=== PATIENT | female | born 1980 | race Caucasian/White ===

== ENCOUNTER 2020-08-12 13:52 | Outpatient (REF) | payer OTHER, SELFPAY ==
--- NOTE | ~2020-08-12 | US_ITS ---
EXAMINATION: US RETROPERITONEAL LIMITED (RENAL ONLY) CLINICAL INFORMATION: Nephrolithiasis. COMPARISON: Renal ultrasound dated 10/04/2019. CT abdomen and pelvis without contrast dated 08/16/2019. TECHNIQUE: Real-time imaging of the kidneys. FINDINGS: RIGHT KIDNEY: 9.7 x 4.0 x 4.6 cm (SAG x AP x TRV). The kidney is normal in size, contour, and echogenicity. Renal cortical thickness is normal. No calculi or focal parenchymal lesions. No hydronephrosis. LEFT KIDNEY: 10.7 x 4.9 x 4.9 cm (SAG x AP x TRV). The kidney is normal in size, contour, and echogenicity. Renal cortical thickness is normal. There are 3 echogenic foci in the mid and lower pole measuring 2 to 3 mm suggestive of small stones. No focal parenchymal lesions or hydronephrosis. US/US renal BI IMPRESSION: Small left renal stones.
== END 2020-08-12 13:53 | disposition home or self-care (01) ==
LOC: HO.HMGCX 13:52
PROVIDERS: Visit Provider Urology
DX: N20.0 Calculus of kidney (principal)
CPT/HCPCS: 76775

== ENCOUNTER 2022-03-03 07:27 | Outpatient (REF) | payer OTHER, SELFPAY ==
[2022-03-03 07:33] LABS: MANUAL DIFF FLAG NO
[2022-03-03 07:54] LABS: Basophils Percent Auto 0.5 % (0-2); Eosinophils Absolute Auto 0.1 X10*3/uL (0.0-0.4); Eosinophils Percent Auto 1.9 % (0-4); Hematocrit 42.8 % (37.0-47.0); Hemoglobin 13.9 g/dl (12.0-16.0); Imm Gran Abs Auto 0.02 X10*3/uL (0.00-0.03); Imm Gran Pct Auto 0.3 % (0.0-0.4); Lymphocytes Absolute Auto 1.7 X10*3/uL (1.2-4.9); Lymphocytes Percent Auto 26.8 % (20-40); Mean Corpuscular HGB Conc 32.5 g/dl (31.0-35.0); Mean Corpuscular Hemoglobin 29.5 pg (27.0-33.0); Mean Corpuscular Volume 90.9 fL (80.0-98.0); Mean Platelet Volume 10.3 fL (9.4-12.3); Monocytes Absolute Auto 0.4 X10*3/uL (0.1-1.2); Monocytes Percent Auto 6.9 % (2-11); Neutrophils Percent Auto 63.6 % (45-73); Platelet Count 305 X10*3/uL (160-400); Red Blood Count 4.71 X10*6/uL (4.20-5.50); Red Cell Distribution Width 11.9 % (11.0-16.0); White Blood Count 6.3 X10*3/uL (4.8-10.8)
[2022-03-03 09:01] LABS: Alanine Aminotransferase 23 U/L (0-31); Albumin Level 3.9 g/dL (3.5-5.0); Alkaline Phosphatase 66 U/L (39-117); Anion Gap 14 (12-20); Aspartate Amino Transferase 19 U/L (5-31); Bilirubin Total 1.1 mg/dL (0.0-1.0); Blood Urea Nitrogen 15 mg/dL (9-16); Calcium 9.2 mg/dL (8.4-10.2); Carbon Dioxide 26 mmol/L (22-29); Chloride 106 mmol/L (96-108); Cholesterol 204 mg/dL; Estimated Glomerular Filt Rate > 60; Free T4 (Free Thyroxine) 0.88 ng/dL (0.71-1.85); Glucose Fasting 108 mg/dL (60-99); HDL Cholesterol 47 mg/dL; LDL Cholesterol Calculated 132 mg/dl; Potassium 4.9 mmol/L (3.3-5.1); Sodium 141 mmol/L (135-145); Thyroid Stimulating Hormone 1.72 uIU/mL (0.32-4.0); Total Protein 6.3 g/dL (6.5-8.0); Triglycerides 127 mg/dL; Vitamin D 25-OH Total 31.3 ng/mL (>30)
== END 2022-03-03 07:28 | disposition home or self-care (01) ==
LOC: HO.LAB 07:27
PROVIDERS: PCP Internal Medicine Medical Oncology; Visit Provider Internal Medicine Medical Oncology
DX: I10 Essential (primary) hypertension (principal); E66.9 Obesity, unspecified
CPT/HCPCS: 36415; 80053; 80061; 82306; 83735; 84439; 84443; 85025

== ENCOUNTER → 2022-11-18 12:55 | Outpatient (REF) | payer OTHER, SELFPAY | LOC: HO.SL 12:55 | PROVIDERS: PCP Internal Medicine Medical Oncology; Visit Provider Psychiatry & Neurology Neurology | DX: G47.33 Obstructive sleep apnea (adult) (pediatric) (principal) | CPT/HCPCS: 95806 ==

== ENCOUNTER → 2022-11-18 19:00 | Outpatient (BNV) | payer OTHER, SELFPAY | PROVIDERS: PCP Internal Medicine Medical Oncology; Visit Provider Internal Medicine | DX: R06.83 Snoring (principal) | CPT/HCPCS: 95806 ==

== ENCOUNTER 2023-01-17 09:12 | Outpatient (REF) | payer OTHER, SELFPAY | END 2023-01-17 09:13 | disposition home or self-care (01) | LOC: HO.XRAY 09:12 | PROVIDERS: PCP Internal Medicine Medical Oncology; Visit Provider Internal Medicine Medical Oncology | DX: R05.9 Cough, unspecified (principal); J18.9 Pneumonia, unspecified organism | CPT/HCPCS: 71046 ==

== ENCOUNTER 2023-02-02 05:29 | Emergency (ER) | payer OTHER, SELFPAY ==
--- NOTE | 2023-02-02 | ECG_ITS ---
Test Reason : CHEST PAIN Blood Pressure : / mmHG Vent. Rate : 079 BPM Atrial Rate : 079 BPM P-R Int : 152 ms QRS Dur : 080 ms QT Int : 388 ms P-R-T Axes : 047 035 019 degrees QTc Int : 444 ms Normal sinus rhythm Normal ECG No previous ECGs available Referred By: Generic ED Physician Electronically Signed By:ASHOK MARTINEZ MD
[2023-02-02 05:41] VITALS: BP 155/104; PULSE 96; RESP 17; TEMP 36.7; O2SAT 96; BMI 39.2
[2023-02-02 05:45] LABS: Hematocrit 41.8 % (37.0-47.0); Hemoglobin 13.9 g/dl (12.0-16.0); Mean Corpuscular HGB Conc 33.3 g/dl (31.0-35.0); Mean Corpuscular Hemoglobin 29.5 pg (27.0-33.0); Mean Corpuscular Volume 88.7 fL (80.0-98.0); Mean Platelet Volume 9.9 fL (9.4-12.3); Platelet Count 310 X10*3/uL (160-400); Red Blood Count 4.71 X10*6/uL (4.20-5.50); Red Cell Distribution Width 12.2 % (11.0-16.0); White Blood Count 6.1 X10*3/uL (4.8-10.8)
[2023-02-02 06:04] LABS: Alanine Aminotransferase 23 U/L (0-31); Alkaline Phosphatase 66 U/L (39-117); Anion Gap 13 (12-20); Aspartate Amino Transferase 19 U/L (5-31); Bilirubin Total 0.9 mg/dL (0.0-1.0); Blood Urea Nitrogen 21 mg/dL (9-16); Calcium 9.6 mg/dL (8.4-10.2); Carbon Dioxide 25 mmol/L (22-29); Chloride 106 mmol/L (96-108); Creatinine Clr Calc Pharmacy 113.1; Estimated Glomerular Filt Rate > 60; Glucose Random 111 mg/dL (60-115); Sodium 140 mmol/L (135-145); Total Protein 7.1 g/dL (6.5-8.0)
[2023-02-02 06:22] LABS: Troponin-I High Sensitivity < 2.7 ng/L (<3.5-17.0)
--- OUTSIDE RECORDS SUMMARY | 2023-02-02 07:00 | XMS_ITS | Continuity of Care Document ---
Author Name Unknown Organization [facility] Address [address] [place] [address], [address] [place] [address]- Care Team Providers Care Auto Refinisher Name Role Phone Javy Hall MD Primary Care Physician Encounter [facility] [place] Date(s): 06/02/22 - 07/31/22 [facility] [address] [place] [address], [address] [place] [address]- Attending Physician: Gladys Almanza MD Allergies, Adverse Reactions, Alerts No Known Medication Allergies Problem List Condition Confirmation Course Effective Dates Status H ealth Status Informant Nerve compression Confirmed Active 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
--- OUTSIDE RECORDS SUMMARY | 2023-02-02 07:00 | XMS_ITS | Continuity of Care Document ---
Author Name Unknown Organization [facility] Address [address] [place] [address] ser[address], [address] [place] [address]- Care Team Providers Care Assembly Department Supervisor Name Role Phone Javy Hall MD Primary Care Physician Encounter [facility] Date(s): 12/03/21 - 12/10/21 [facility] [address] [place] [address] Drive, [address] [place], [place] [address] Attending Physician: Gladys Almanza MD Allergies, Adverse Reactions, Alerts No Known Medication Allergies Medications No Known Medications Problem List Condition Effective Dates Status Health Status Inform ant Nerve compression(Confirmed) Active Herniation of intervertebral disc without myelopathy(Confirmed) Active Severe obesity(Confirmed) Active Spinal stenosis(Confirmed) Active Vital Signs Most recent to oldest [Reference Range]: 1 Height 170.18 cm (12/03/21 11:47 AM) Weight 124 kg (12/03/21 11:47 AM) Body Mass Index [18.5-24.99] 42.82 *>HHI* (12/03/21 11:47 AM) Social History Social History Type Response Smoking Status Never smoker entered on: 05/23/17 Sex Care Team Personnel Name: Javy Hall MD Address: [address] [place] [address] [address] Javy Hall III, [place], [place] [address]
--- OUTSIDE RECORDS SUMMARY | 2023-02-02 07:00 | XMS_ITS | Continuity of Care Document ---
Author Name Unknown Organization [facility] Address [address] [place] [address]- Care Team Providers Care Computer Tester Name Role Phone Calli OSORIO, Alicia Jackman Primary Care Physician Encounter 11/20/21 - 11/30/21 [facility] [address] [place] [address]- Discharge Disposition: GOALS MET Allergies, Adverse Reactions, Alerts No Known Medication Allergies Problem List Condition Effective Dates Status Health Status Inform ant Nerve compression(Confirmed) Active Herniation of intervertebral disc without myelopathy(Confirmed) Active Severe obesity(Confirmed) Active Spinal stenosis(Confirmed) Active Social History Social History Type Response Smoking Status Never smoker entered on: 05/23/17 Sex
--- OUTSIDE RECORDS SUMMARY | 2023-02-02 07:00 | XMS_ITS | Continuity of Care Document ---
Author Name Unknown Organization [facility] Address [address] [place] [address], [address] [place] [address]- Care Team Providers Care Editor Managing Newspaper Name Role Phone Javy Hall MD Primary Care Physician [place] [facility] [place] - 07/31/22 [facility] [address] [place] [address], [address] [place] [address]- Attending Physician: Shubham Brewer Admitting Physician: Admtr ArBryanna Referring Physician: Admtr, Ar8 Allergies, Adverse Reactions, Alerts No Known Medication [...] Care Nurse Name: Javy Hall MD Position: [facility] Oncology MD Member Role: PCP Address: Address: [address] [place] [address] [address] Javy Hall III, [place] [address]- Care Team Related Persons Name: BUFFY RAUL Address: home [address] [place] [address]
--- OUTSIDE RECORDS SUMMARY | 2023-02-02 07:00 | XMS_ITS | Continuity of Care Document ---
Author Name Unknown Organization [facility] Address [address] [place] [address], [address] [place] [address]- Care Team Providers Care Hair Or Beauty Salon Manager Name Role Phone Javy Hall MD Primary Care Physician Encounter [facility] Date(s): 05/19/22 - 06/18/22 [facility] [address] [place] [address] Drive, [address] [place] [address]- Allergies, Adverse Reactions, Alerts No Known Medication [...] Care Nurse Name: Javy Hall MD Position: [facility] Oncology MD Member Role: PCP Address: Address: [address] [place] [address] [address] Javy Hall III, [place] [address]- Care Team Related Persons Name: RAUL BAER Address: home [address] [place] [address]
--- OUTSIDE RECORDS SUMMARY | 2023-02-02 07:01 | XMS_ITS | Continuity of Care Document ---
Author Name Unknown Organization [facility] Address [address] [place] [address], [address] [place] [address]- Care Team Providers Care Social Services Analyst Name Role Phone Javy Hall MD Primary Care Physician [phone] Encounter [facility] Date(s): 12/21/21 - 01/20/22 [facility] [address] [place] [address] Drive, [address] [place], [place] [address] Allergies, Adverse Reactions, Alerts No Known Medication Allergies Problem List Condition Confirmation Course Effective Dates Status H ealth Status Informant Nerve compression Confirmed Active 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
--- OUTSIDE RECORDS SUMMARY | 2023-02-02 07:01 | XMS_ITS | Continuity of Care Document ---
Author Name Unknown Organization [facility] Address [address] [place] [address], [address] [place] [address]- Care Team Providers Care Plastic Extruding Machine Operator Name Role Phone Javy Hall MD Primary Care Physician Encounter [facility] Date(s): 02/10/22 - 03/12/22 [facility] [address] [place] [address] Drive, [address] [place] [address]- Allergies, Adverse Reactions, Alerts No Known Medication [...] Care Nurse Name: Javy Hall MD Position: [facility] Oncology MD Member Role: PCP Address: Address: [address] [place] [address] [address] Javy Hall III, [place] [address]- Care Team Related Persons Name: RAUL BAER Address: home [address] [place] [address]
--- OUTSIDE RECORDS SUMMARY | 2023-02-02 07:01 | XMS_ITS | Continuity of Care Document ---
Author Name Unknown Organization [facility] Address [address] [place] [address]- Care Team Providers Care Healthcare Management Name Role Phone Javy Hall MD Primary Care Physician En[place] [facility] [place] Date(s): 11/18/21 - 12/18/[address] [address] Attending Physician: Not on Staff, Attending MD Admitting Physician: Not on Staff, Admitting MD Referring Physician: Not on Staff, Referring MD Allergies, Adverse Reactions, Alerts No Known Medication Allergies Problem List Condition Effective Dates Status Health Status Inform ant Nerve compression(Confirmed) Active Herniation of intervertebral disc without myelopathy(Confirmed) Active Severe obesity(Confirmed) Active Spinal stenosis(Confirmed) Active Social History Social History Type Response Smoking Status Never smoker entered on: 05/23/17 Sex Care Team Personnel Name: Javy Hall MD Address: [address] Javy Hall III, MD [place], [place] [address]
--- OUTSIDE RECORDS SUMMARY | 2023-02-02 07:01 | XMS_ITS | Continuity of Care Document ---
Author Name Unknown Organization [facility] Address [address] [place] [address] [address], [address] [place] [address]- Care Team Providers Care Community Service Specialist Name Role Phone Javy Hall MD Primary Care Physician [place] [facility] [place](s): 12/03/21 - 01/02/22 [facility] [address] [place] [address] Drive, [address] [place] [address]- Attending Physician: Shubham Brewer Admitting Physician: Shubham Brewer Referring Physician: Admtr, Ar8 Allergies, Adverse Reactions, Alerts No Known Medication Allergies Problem List Condition Effective Dates Status Health Status Inform ant Nerve compression(Confirmed) Active Herniation of intervertebral disc without myelopathy(Confirmed) Active Severe obesity(Confirmed) Active Spinal stenosis(Confirmed) Active Social History Social History Type Response Smoking Status Never smoker entered on: 05/23/17 Sex Care Team Personnel Name: Javy Hall MD Address: [address] [place] [address] Drive #[facility] Javy Hall III, MD [place], [place] [address]
--- OUTSIDE RECORDS SUMMARY | 2023-02-02 07:01 | XMS_ITS | Continuity of Care Document ---
Author Name Unknown Organization [facility] ter Address [address] [place] [address]- Care Team Providers Care Racing Driver Name Role Phone Calli OSORIO, Alicia Jackman Primary Care Physician [place] [facility] [place] - 11/19/[address] [address] Discharge Disposition: A-D/C Home Attending Physician: Armani Cannon MD Admitting Physician: Remington Hunt DO Referring Physician: Not on Staff, Referring MD Allergies, Adverse Reactions, Alerts No Known Medication Allergies Medications oxyCODONE 5 mg oral tablet 5 mg, 1, tablet, By Mouth, Every 6 hours, for 7 days, # 28 tablet, Refills 0, Tot. Refills 0, Acute11/26/21 18:41:00 EDT, 11/19/21 18:41:00 EDT, Route to Pharmacy Electronically, [facility], Partial fill upon patient request if the pres... Start Date: 11/19/21 Stop Date: 11/26/21 Status: Ordered Tylenol Tablet 650 mg, Tablet, By Mouth, greater than 101.5, Not to exceed 4 GM of Tylenol per 24 hour period, 11/19/21 12:00:00 EDT Start Date: 11/19/21 Stop Date: 11/19/21 Status: Completed Problem List Condition Effective Dates Status Health Status Inform ant Nerve compression(Confirmed) Active Herniation of intervertebral disc without myelopathy(Confirmed) Active Severe obesity(Confirmed) Active Spinal stenosis(Confirmed) Active Results Radiology Reports * Exam Date Time Procedure Performing Provider Status 11/19/21 10:44 AM C-Arm < 1 Hour Do , Yony; Auth (Greta ified) Notes: (C-Arm < 1 Hour) Reason For Exam: Spinal cord compression. Microdisectomy L5-S1 RESULT: C-Arm < 1 Hour Study: Spine Single View, C-Arm < 1 Hour History: Reason: Spinal cord compression. Microdisectomy L5-S1. Comparison: None available. FINDINGS: Fluoroscopy support was provided. There was no radiologist in attendance. Single fluoroscopic image was submitted. Technologist time: 50 min. Fluoroscopy time: 8.4 sec. Cumulative dose: 6.62 mGy IMPRESSION: Fluoroscopy support was provided. Please refer to the operative note for surgical details. WSN: [id number] Ordering Physician: Gladys Almanza Dictated By: Parviz Stewart MD Dictated Date/Time: 11/19/21 11:45 a Reviewed By: Parviz Stewart MD Signed By: Parviz tSewart MD Signed Date/Time: 11/19/21 11:45 am Transcribed By: SEB Transcribed Date/Time: 11/19/21 11:43 am * Exam Date Time Procedure Performing Provider Status 11/19/21 10:44 AM Spine Single View Do , Yony; Auth ( Verified) Notes: (Spine Single View) Reason For Exam: Spinal cord compression. Microdisectomy L5-S1 RESULT: Spine Single View Study: Spine Single View, C-Arm < 1 Hour History: Reason: Spinal cord compression. Microdisectomy L5-S1. Comparison: None available. FINDINGS: Fluoroscopy support was provided. There was no radiologist in attendance. Single fluoroscopic image was submitted. Technologist time: 50 min. Fluoroscopy time: 8.4 sec. Cumulative dose: 6.62 mGy IMPRESSION: Fluoroscopy support was provided. Please refer to the operative note for surgical details. WSN: [id number] Ordering Physician: Gladys Almanza Dictated By: Parviz Stewart MD Dictated Date/Time: 11/19/21 11:45 a Reviewed By: Parviz Stewart MD Signed By: Parviz Stewart MD Signed Date/Time: 11/19/21 11:45 am Transcribed By: SEB Transcribed Date/Time: 11/19/21 11:43 am Vital Signs Most recent to oldest [Reference Range]: 1 2 3 Height 170.18 cm (11/19/21 8:37 AM) Weight 124.2 kg (11/19/21 3:00 PM) 124.2 kg (11/19/21 12:00 PM) 124.2 kg (11/19/21 9:15 AM) Oxygen Saturation [94-100 %] 100 % (11/19/21 3:00 PM) 100 % (11/19/21 12:00 PM) 96 % (11/19/21 11:45 AM) Pulse Rate [55-90 bpm] 83 bpm (11/19/21 3:00 PM) 77 bpm (11/19/21 12:00 PM) 83 bpm (11/19/21 10:45 AM) Body Mass Index [18.5-24.99] 42.88 *>HHI* (11/19/21 8:37 AM) Blood Pressure [90-138/55-84 mm Hg] 144/96mm Hg *H* (11/19/21 3:00 PM) 158/96mm Hg *H* (11/19/21 12:00 PM) 147/71mm Hg *H* (11/19/21 11:45 AM) Respiratory Rate [16-30 br/min] 18 br/min (11/19/21 3:00 PM) 18 br/min (11/19/21 12:32 PM) 18 br/min (11/19/21 12:00 PM) Temperature [96.8-100.4 DegF] 97.3 DegF (11/19/21 3:00 PM) 97.4 DegF (11/19/21 12:00 PM) 97.0 DegF (11/19/21 11:30 AM) Mode of Delivery (Oxygen) Room air (11/19/21 3:00 PM) Room air (11/19/21 12:00 PM) Room air (11/19/21 11:45 AM) Blood pressure sites Arm, left (11/19/21 3:00 PM) Arm, left (11/19/21 12:00 PM) Arm, left (11/19/21 11:45 AM) Temperature Route Temporal (11/19/21 3:00 PM) Temporal (11/19/21 12:00 PM) Temporal (11/19/21 11:30 AM) Dry Weight 124.2 kg (11/19/21 8:37 AM) Social History Social History Type Response Smoking Status Never smoker entered on: 2/12/18 Sex
--- OUTSIDE RECORDS SUMMARY | 2023-02-02 07:01 | XMS_ITS | Continuity of Care Document ---
Author Name Unknown Organization [facility] ter Address [address] [place] [address]- Care Team Providers Care Floor Clerk Name Role Phone Alicia Mccurdy MD Primary Care Physician [place] [facility] [place]17[place] - 11/17/[address] [address]- Encounter Diagnosis Low back pain(Final) - 11/17/21 Discharge Disposition: A-D/C Home Attending Physician: Maximus Peña MD Admitting Physician: Maximus Peña MD Referring Physician: Not on Staff, Referring MD Allergies, Adverse Reactions, Alerts No Known Medication Allergies Medications Dexamethasone = 5 mg, By Mouth, PRN Pain , Moderate, 0 Refills, Maintenance, 11/17/21 21:57:00 EDT, Partial fill upon patient request if the prescription is for a schedule II opioid drug. Start Date: 11/17/21 Status: Ordered Dilaudid Inj 1 mg, Injection, IV Push Slowly, Every 15 minutes for 3 doses/times, PRN for Pain , Moderate, and SBP greater than 100, STAT, 11/17/21 12:41:00 EDT, Stop date Limited # of times Start Date: 11/17/21 Stop Date: 11/17/21 Status: Completed Problem List Condition Effective Dates Status Health Status Inform ant Herniation of intervertebral disc without myelopathy(Confirmed) Active Severe obesity(Confirmed) Active Results Radiology Reports * Exam Date Time Procedure Performing Provider Status 11/17/21 2:57 PM XR Hip w/Pelvis 2-3 View Left Aliyah Rm; Auth (Verified) Notes: (XR Hip w/Pelvis 2-3 View Left) Reason For Exam: Pain RESULT: XR Hip w/Pelvis 2-3 View Left XR Hip w/Pelvis 2-3 View Left Hx of Present Illness: left hip pain; Reason: Pain; Clinical Question(s): Fracture COMPARISON: None. FINDINGS: There is no fracture or dislocation. Normal hips and sacroiliac joints. Normal soft tissues. IMPRESSION: No acute abnormalities seen. WSN: [id number] Ordering Physician: Josselin Castle Dictated By: Vinay Serrano MD, V Dictated Date/Time: 11/17/21 3:05 pm Reviewed By: Vinay Serrano MD, V Signed By: Vinay Serrano MD, V Signed Date/Time: 11/17/21 3:05 pm Transcribed By: SEB Transcribed Date/Time: 11/17/21 3:05 pm Vital Signs Most recent to oldest [Reference Range]: 1 2 3 Oxygen Saturation [94-100 %] 100 % (11/17/21 12:48 PM) 100 % (11/17/21 9:38 AM) Pulse Rate [55-90 bpm] 89 bpm (11/17/21 12:48 PM) 75 bpm (11/17/21 9:38 AM) Blood Pressure [90-138/55-84 mm Hg] 125/89mm Hg (11/17/21 12:48 PM) 193/113mm Hg *H* (11/17/21 9:38 AM) Respiratory Rate [16-30 br/min] 18 br/min (11/17/21 7:12 PM) 18 br/min (11/17/21 2:07 PM) 18 br/min (11/17/21 12:48 PM) Temperature [96.8-100.4 DegF] 97.7 DegF (11/17/21 9:38 AM) Mode of Delivery (Oxygen) Room air (11/17/21 12:48 PM) Room air (11/17/21 9:38 AM) Temperature Route Oral (11/17/21 9:38 AM) Social History Social History Type Response Smoking Status Never smoker entered on: 05/23/17 Sex
[2023-02-02 07:38] VITALS: BP 181/87; PULSE 60; PULSE 67; RESP 12; O2SAT 99
--- NOTE | 2023-02-02 07:39 | ED_ITS ---
HPI - Chest Pain General Chief Complaint: Chest Pain Stated Complaint: Chest pain Time Seen by Provider: 02/02/23 07:09 Source: patient Mode of arrival: ambulatory Limitations: no limitations History of Present Illness HPI narrative: Patient was not feeling well last night felt like she might be getting sick, she then developed chest pain last night going to her left arm. She got stressed felt like it was a struggle to talk. Her entire episode lasted 45 minutes complaint: chest pain Onset (ago): minute(s) Timing of current episode: constant Onset: during rest Pain location: left chest Pain radiation: left arm Related Data Allergies Allergy/AdvReac Type Severity Reaction Status Date / Time No Known Allergies Allergy Unverified 12/27/19 16:52 [No Known Allergies*] Review of Systems 2 Review of Systems: Yes all other systems are reviewed and are negative Neurologic: Denies Sensory deficit (Neuro) [facility] Social History Social History Alcohol intake: current Alcohol intake frequency: a few times a week Alcohol type: wine Smoked in Last 30 Days: No Use of substances other than those prescribed or required for medical reasons: No Advance Directives: No Advance Directives Information Provided: No Physical Exam 2 Vital Signs: Vital Signs: Last Vital Signs Temp 98.5 F 02/02/23 10:05 Pulse 55 02/02/23 10:05 Resp 12 02/02/23 10:05 BP 150/85 H 02/02/23 10:05 Pulse Ox 98 02/02/23 10:05 O2 Del Method Room Air 02/02/23 10:05 BMI result Body Mass Index 39.2 Const: Other: slightly anxious Nutritional Appearance: obese Orientation/consciousness: oriented to person and patient oriented x3 Limitations: no limitations HEENT: Head: Yes normal to inspection Ears: external ears normal General nose exam: Normal external nose present Mouth: Normal oral and palatal mucosa present and oropharynx normal Throat: Yes posterior oropharynx normal Eyes: General: appearance normal, both eyes and all related structures Neck: Other: supple Neck: Yes normal visual inspection Chest: Chest palpation & inspection: normal inspection of the chest Resp: Auscultation: clear to auscultation bilaterally Cardio: Jugular venous distension: no JVD Rate: regular rate Rhythm: r egular rhythm Heart sounds: S1 normal heart sound present and S2 normal heart sound present GI: Inspection: Yes normal to inspection Palpation (GI): Soft to palpation, nontender and No hepatosplenomegaly present Auscultation: normal bowel sounds : General: Yes no CVA tenderness Back/Spine/Pelvis: Back: no CVA tenderness Skin: General skin exam: no rashes or lesions noted Neuro: General: oriented to person and patient oriented x3 Cranial nerves: Yes CN's II-XII intact bilaterally Motor exam (neuro): 5/5 motor strength present throughout Sensory Exam: No Sensory deficit (Neuro) Extrem: General: Yes normal to inspection Psych: Other: slightly anxious Appearance: grossly normal Course Reevaluation(s) Reevaluation #1: Patient remains comfortable, EKG normal, serial enzymes normal will dc home Time: 10:04 Medical Decision Making Differential Diagnosis Differential Diagnoses: The differential diagnosis associated with the presentation includes (STEMI, cardiac ischemia, anxiety all considered) Admission/Observation Consideration of admission/observation: Escalation of care including admission/observation considered (upon arrival patient was considered for admission) Lab Data MDM Lab Attestation statement: I reviewed the patient's lab results. (flat troponin) 02/02/23 05:40 02/02/23 05:40 Labs: Lab Results 02/02/23 02/02/23 02/02/23 Range/Units 05:40 07:45 09:11 WBC 6.1 (4.8-10.8) X10*3/uL RBC 4.71 (4.20-5.50) X10*6/uL Hgb 13.9 (12.0-16.0) g/dl Hct 41.8 (37.0-47.0) % MCV 88.7 (80.0-98.0) fL MCH 29.5 (27.0-33.0) pg MCHC 33.3 (31.0-35.0) g/dl RDW 12.2 (11.0-16.0) % Plt Count 310 (160-400) X10*3/uL MPV 9.9 (9.4-12.3) fL Absolute Nucleated RBC 0.000 (0.0-0.012) X10*3/uL Nucleated RBC % (auto) 0.0 (0.0-0.2) /100WBC Sodium 140 (135-145) mmol/L Potassium 4.0 (3.3-5.1) mmol/L Chloride 106 (96-108) mmol/L Carbon Dioxide 25 (22-29) mmol/L Anion Gap 13 (12-20) BUN 21 H (9-16) mg/dL Creatinine 0.85 (0.5-1.4) mg/dL Estim Creat Clear Calc 113.1 Estimated GFR > 60 Random Glucose 111 (60-115) mg/dL Calcium 9.6 (8.4-10.2) mg/dL Total Bilirubin 0.9 (0.0-1.0) mg/dL AST 19 (5-31) U/L ALT 23 (0-31) U/L Alkaline Phosphatase 66 (39-117) U/L Troponin I High Sens < 2.7 < 2.7 (<3.5-17.0) ng/L Total Protein 7.1 (6.5-8.0) g/dL Albumin 4.0 (3.5-5.0) g/dL COVID-19 (SAMUEL) Negative (Negative) COVID-19 Clin Com See Note Independent Interpretation I performed an independent interpretation of an: EKG (sinus 80, no st or twave changes) Independent Historian Clinical information obtained from an independent historian. History obtained from or confirmed by: Parent (father) External Record Review External record reviewed: Prior outpatient radiology (recent CXR was normal) Tests considered The following testing was considered but not selected: chest xray considered but patient had a recent CXR Discharge Plan Discharge Clinical Impression: Chest pain, Anxiety Patient Disposition: Home, Self-Care Instructions: Chest Pain (ED), Anxiety (ED) Referrals: Physician,Unknown J [Primary Care Provider] - 5 days
[2023-02-02 08:06] LABS: COVID-19 Test Negative (Negative); IDNOW Serial# BCCEAD1C
[2023-02-02 09:46] LABS: Troponin-I High Sensitivity < 2.7 ng/L (<3.5-17.0)
[2023-02-02 10:05] VITALS: BP 150/85; PULSE 55; RESP 12; TEMP 36.9; O2SAT 98
== END 2023-02-02 10:24 | disposition home or self-care (01) ==
PROVIDERS: Emergency Provider Emergency Medicine
DX: R07.9 Chest pain, unspecified (principal); F41.9 Anxiety disorder, unspecified; Z11.52 Encounter for screening for COVID-19
CPT/HCPCS: 36415; 80053; 84484; 85027; 87635; 93005; 99283; 99285

== ENCOUNTER 2023-12-01 09:00 | Outpatient (REF) | payer OTHER, SELFPAY ==
[2023-12-01 09:12] LABS: MANUAL DIFF FLAG NO
[2023-12-01 09:30] LABS: Basophils Percent Auto 0.4 % (0-2); Eosinophils Absolute Auto 0.2 X10*3/uL (0.0-0.4); Eosinophils Percent Auto 2.2 % (0-4); Hematocrit 39.8 % (37.0-47.0); Hemoglobin 13.5 g/dl (12.0-16.0); Imm Gran Abs Auto 0.02 X10*3/uL (0.00-0.03); Imm Gran Pct Auto 0.3 % (0.0-0.4); Lymphocytes Absolute Auto 1.6 X10*3/uL (1.2-4.9); Lymphocytes Percent Auto 23.4 % (20-40); Mean Corpuscular HGB Conc 33.9 g/dl (31.0-35.0); Mean Corpuscular Hemoglobin 30.1 pg (27.0-33.0); Mean Corpuscular Volume 88.8 fL (80.0-98.0); Mean Platelet Volume 10.5 fL (9.4-12.3); Monocytes Absolute Auto 0.5 X10*3/uL (0.1-1.2); Monocytes Percent Auto 7.2 % (2-11); Neutrophils Absolute Auto 4.5 x10*3/uL (2.0-8.3); Neutrophils Percent Auto 66.5 % (45-73); Platelet Count 289 X10*3/uL (160-400); Red Blood Count 4.48 X10*6/uL (4.20-5.50); Red Cell Distribution Width 12.2 % (11.0-16.0); White Blood Count 6.8 X10*3/uL (4.8-10.8)
[2023-12-01 10:11] LABS: Alanine Aminotransferase 31 U/L (0-31); Alkaline Phosphatase 64 U/L (39-117); Anion Gap 10 (12-20); Aspartate Amino Transferase 22 U/L (5-31); Bilirubin Total 1.3 mg/dL (0.0-1.0); Blood Urea Nitrogen 14 mg/dL (9-16); Calcium 9.4 mg/dL (8.4-10.2); Carbon Dioxide 27 mmol/L (22-29); Chloride 106 mmol/L (96-108); Cholesterol 172 mg/dL (<200); Estimated Glomerular Filt Rate > 60; Glucose Fasting 107 mg/dL (60-99); HDL Cholesterol 45 mg/dL (>40); LDL Cholesterol Calculated 97 mg/dL (<100); Potassium 4.3 mmol/L (3.3-5.1); Sodium 139 mmol/L (135-145); Total Protein 6.8 g/dL (6.5-8.0); Triglycerides 151 mg/dL (<150)
[2023-12-01 10:19] LABS: Free T4 (Free Thyroxine) 0.85 ng/dL (0.71-1.85); Thyroid Stimulating Hormone 1.13 uIU/mL (0.32-4.0)
== END 2023-12-01 09:01 | disposition home or self-care (01) ==
LOC: HO.LAB 09:00
PROVIDERS: PCP Internal Medicine Medical Oncology; Visit Provider Internal Medicine Medical Oncology
DX: E66.01 Morbid (severe) obesity due to excess calories (principal); E03.9 Hypothyroidism, unspecified
CPT/HCPCS: 36415; 80053; 80061; 84439; 84443; 85025

== ENCOUNTER 2024-01-17 14:26 | Outpatient (REF) | payer OTHER, SELFPAY ==
--- NOTE | ~2024-01-17 | CT_ITS ---
EXAMINATION: CT HEAD WITHOUT CONTRAST CLINICAL INFORMATION: Occipital neuralgia COMPARISON: None available. TECHNIQUE: Contiguous axial imaging was performed from the skull base to vertex without intravenous administration of contrast. This CT examination was performed using dose optimization techniques as appropriate, variously including the following: *Automated exposure control *Adjustment of mA and/or kV according to patient size (this includes techniques or standardized protocols for targeted exams where dose is matched to indication/reason for exam; i.e. extremities or head) *Use of iterative reconstruction technique DLP: 723 mGy-cm FINDINGS: No intra or extra-axial fluid collection or hemorrhage, mass, or mass effect. Calvarium intact. CT/CT head/brain wo IV con IMPRESSION: No acute intracranial pathology. Electronically signed by: Yony Moss MD 01/17/2024 04:28 PM EDT
== END 2024-01-17 14:27 | disposition home or self-care (01) ==
LOC: HO.CT 14:26
PROVIDERS: PCP Internal Medicine Medical Oncology; Visit Provider Internal Medicine Medical Oncology
DX: M54.81 Occipital neuralgia (principal)
CPT/HCPCS: 70450

== ENCOUNTER 2024-04-23 09:14 | Outpatient (AMB) | payer OTHER, SELFPAY ==
[2024-04-23 09:22] VITALS: BP 118/70; BMI 43.5
--- NOTE | 2024-04-23 09:22 | A.OFFVIS_ITS ---
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 Her history is otherwise significant for high blood pressure. She sees Dr. Hall for primary care. She says she had a history of abnormal Pap smears when she was in her early 20s and she believes she had a LEEP at 1 point but the last abnormal 1 a probably 20 years ago. She had not had a Pap smear since her with her daughter who is now 7 years old. She has not had a mammogram she has high blood pressure but it is controlled with lisinopril though she also recently got diagnosed with migraines she has medication to take p.r.n. but only takes it if she needs it. Blood pressure today is within normal limits. She is about to start on semaglutide through a weight loss clinic the she had a tele health visit with. She is very busy with her high stress job and works a lot of hours and her kids are in sports so she spends a lot of time bringing them to things she and some of the other parents walk around when practices are going on. She tries to get the gym a couple of times a week she .is trying to bring food to work to eat healthier. She said she was told all of her labs are fine and she does not qualify for weight loss surgery. The most recent thing in her medical history was that she was just back from a trip and had something going on with her face and thought she was having a stroke and went to the emergency room and she was diagnosed with Mejía's palsy she was put on gabapentin which helped and prednisone which did cause her to gain a little bit more weight she is recovering from that now [facility] Medical History (Updated 04/23/24 @ 10:38 by Nicole Castañeda CNM) Gall bladder disease Migraines HTN (hypertension) Surgical History (Updated 04/23/24 @ 10:35 by Nicole Castañeda CNM) S/P H/O: hysterectomy History of ankle surgery Social History Alcohol intake: current Alcohol intake frequency: a few times a week Alcohol type: wine Female Reproductive History Menstrual Age of Menarche: 13 Duration of menses: 3-5 days control method: none Total pregnancies: 3 Full term: 3 Date of last pap smear: 05/08/16 (negative) History of abnormal pap smear: Yes (hx abn. pap) Physical Exam Vital Signs: Last Vital Signs BP 118/70 04/23/24 09:22 BMI result Body Mass Index 43.5 Const General: healthy appearing, comfortable, no acute distress, well developed and alert Nutritional Appearance: average body habitus Orientation/consciousness: patient oriented x3 Limitations: no limitations HEENT Head: Yes normocephalic Neck Neck: Yes normal visual inspection Thyroid: Thyroid normal Chest Chest palpation & inspection: normal inspection of the chest Breast/axilla inspection: normal inspection of the breasts and normal inspection of the axillae Breast/axilla palpation: normal palpation of the breasts and normal palpation of the axillae Resp Effort & Inspection: normal respiratory effort GI Inspection: Yes normal to inspection, No Abdominal wall edema and No distended Palpation (GI): Soft to palpation and nontender Other: External exam within vagina is pink and moist whitish discharge. They are very much appears to normal pink round cervix that is smooth mobile nontender and feels short. uterus is surgically absent. Adnexa nontender nonenlarged. Good tone with Kegel, able to sustain muscle contraction. Pap smear of what appears to be a cervix was taken. Testing for gonorrhea chlamydia trichomoniasis bacterial vaginosis and yeast also done General: Yes bladder normal to palpation External Female Exam: normal external appearance and normal appearance of the urethra Speculum Exam - Vagina: normal appearance of the vagina, normal palpation and normal vaginal discharge Speculum Exam - Cervix: normal appearance of the cervix, normal palpation and nontender Bimanual exam- vagina & uterus: normal bimanual exam, normal palpation, bladder normal to palpation, consistency normal, normal palpation, No Cervical tenderness present, non-tender and no cervical motion tenderness Bimanual Exam- Adnexa, other: normal adnexae, no masses, normal and No adnexal tenderness Neuro General: patient oriented x3 Results Reviewed Results Reviewed: RUN: 04/23/24 1019 PAGE 1 [facility] [address] [place] [id number] Professional Athlete: Titus Murphy M.D. Specimen Inquiry Name: Adela Harrison Age/Sex: 43/F : 1980 Unit#: [id number] Attend Dr: Javy Hall MD Re12/01/23 Status: DEP [facility] Disch: SPEC : [id number] ARCHIE: 12/01/23 STATUS: COMP REQ : [id number] RECD: 12/01/[address]: Javy Hall MD COMP: 12/01/239 ENTERED: 12/01/23 [facility] : ORDERED: CMP Fast, Lipid Panel, Free T4, TSH Test Result Flag Reference Sodium 139 135-145 mmol/L Potassium 4.3 3.3-5.1 mmol/L CL 106 96-108 mmol/L CO2 27 22-29 mmol/L Gap 10 L 12-20 BUN 14 9-16 mg/dL Creat 0.86 0.5-1.4 mg/dL EGFR > 60 NOTE: For -Azerbaij[place] individuals, multiply the result by 1.210. Chronic Kidney Disease: Estimated GFR < 60 mL/min/1.73m2 Severe Kidney Disease: Estimated GFR < 15 mL/min/1.7 3m2 FBS 107 H 60-99 mg/dL A fasting glucose from 100-125 mg/dl is considered impaired (pre-diabetes). CA 9.4 8.4-10.2 mg/dL Total Bili 1.3 H 0.0-1.0 mg/dL AST (GOT) 22 5-31 U/L ALT (GPT) 31 0-31 U/L Protein, Total 6.8 6.5-8.0 g/dL Alb 4.0 3.5-5.0 g/dL Triglyceride 151 H <150 mg/dL Desirable Triglyceride: less than 150 mg/dL Borderline High Triglyceride 150-199 mg/dL High Triglyceride: 200-499 mg/dL Very High Triglyceride: greater than or equal to 5OO mg/dL Cholesterol 172 <200 mg/dL Desirable Cholesterol: less than 200 mg/dL Borderline High Cholesterol: 200-239 mg/dL High Cholesterol: greater than 239 mg/dL LDL Calculated 97 <100 mg/dL Desirable LDL: less than 100 mg/dL Near Optimal/Above Optimal LDL: 110-129 mg/dL Borderline High LDL: 130-159 mg/dL High LDL: 160-189 mg/dL Very High LDL: greater than or equal to 190 mg/dL HDL 45 >40 mg/dL Desirable HDL: greater than 40 mg/dL Note: This HDL assay may give artificially low results in patients with liver disease. Alk Phos 64 39-117 U/L Free T4 0.85 0.71-1.85 ng/dL TSH 3rd Gen. 1.13 0.32-4.0 uIU/mL TSH 3rd Generation ([facility]) END OF REPORT Assessment & Plan Assessment & Plan (1) Well woman exam with routine gynecological exam: Code(s): Z01.419 - Encounter for gynecological examination (general) (routine) without abnormal findings Category: Medical (2) Hx of abnormal cervical Pap smear: Comment: History of abnormals many years ago possible LEEP?./patient thought her cervix had been removed there appears to be a cervix. Pap smear taken 04/23/2024. Code(s): Z87.42 - Personal history of other diseases of the female genital tract Category: Medical (3) Breast cancer screening: Code(s): Z12.39 - Encounter for other screening for malignant neoplasm of breast Category: Medical (4) Obesity, morbid, BMI 40.0-49.9: Code(s): E66.01 - Morbid (severe) obesity due to excess calories Category: Medical (5) H/O: hysterectomy: Comment: Patient has what appears to be a normal cervix. uterus is surgically absent. Pap smear taken. patient to request records. Code(s): Z90.710 - Acquired absence of both cervix and uterus Category: Surgical (6) HTN (hypertension): Comment: Normotensive 04/23/2024. Code(s): I10 - Essential (primary) hypertension Category: Medical Plan Patient believe that her cervix was removed however it does appeared during exam that there is a structure that appears to be in feel like a cervix though it could be coincidental scarring from the hysterectomy that appears like a cervix. Requested that patient sign for records so that we have records of her hysterectomy Pap smear done of cervix like structure nevertheless because of her history of abnormal. I am ordering a mammogram..Breast exam within normal limits Patient is embarking on continued efforts to eat healthier and lose weight and will be starting semaglutide soon through a weight loss program and is trying to eat better and be active go to the gym. She was told that she was not in the prediabetic range though the blood sugar in the chart does appear so. Nev jacobess she is embarking on a program to deal with these issues. Her blood pressure was within limits today. RTC 1 year. Orders: Orders CT NG by PCR Today N89.8 - Other specified noninflammatory disorders of vagina Bacterial Vaginosis Panel Today N89.8 - Other specified noninflammatory disorders of vagina MM tomosynthesis screening BI Today Z01.419 - Encounter for gynecological examination (general) (routine) without abnormal findings, Z12.31 - Encounter for screening mammogram for malignant neoplasm of breast, Z12.39 - Encounter for other screening for malignant neoplasm of breast, Z87.42 - Personal history of other diseases of the female genital tract Pap Smear Today Z01.419 - Encounter for gynecological examination (general) (routine) without abnormal findings Coding Level of Care Code New Pt Prev Care 40-64y([id number]) Diagnoses Well woman exam with routine gynecological exam Z01.419 Hx of abnormal cervical Pap smear Z87.42 Breast cancer screening Z12.39 Obesity, morbid, BMI 40.0-49.9 E66.01 H/O: hysterectomy Z90.710 HTN (hypertension) I10
== END 2024-04-23 10:15 | disposition home or self-care (01) ==
PROVIDERS: PCP Internal Medicine Medical Oncology; Visit Provider Advanced Practice Midwife
DX: Z01.419 Encounter for gynecological examination (general) (routine) without abnormal findings (principal); Z87.42 Personal history of other diseases of the female genital tract; E66.01 Morbid (severe) obesity due to excess calories; Z90.710 Acquired absence of both cervix and uterus; I10 Essential (primary) hypertension
CPT/HCPCS: 99386; 99459

== ENCOUNTER 2024-04-23 09:14 | Outpatient (REF) | payer OTHER, SELFPAY ==
[2024-04-24 05:58] LABS: CT PCR NOT DETECTED (Not Detect.); NG PCR NOT DETECTED (Not Detect.)
[2024-04-24 13:05] LABS: Bacterial Vaginosis PCR POSITIVE (Negative); Candida Group PCR NOT DETECTED (Not Detect); Candida glab krusei PCR NOT DETECTED (Not Detect); Trichomonas vaginalis PCR NOT DETECTED (Not Detect)
== END 2024-04-23 09:15 | disposition home or self-care (01) ==
LOC: HO.LAB 09:14
PROVIDERS: PCP Internal Medicine Medical Oncology; Visit Provider Advanced Practice Midwife
DX: N89.8 Other specified noninflammatory disorders of vagina (principal); Z11.3 Encounter for screening for infections with a predominantly sexual mode of transmission
CPT/HCPCS: 81515; 87491; 87591

== ENCOUNTER 2024-04-23 10:11 | Outpatient (REF) | payer OTHER, SELFPAY ==
[2024-04-23 14:24] LABS: HPV 16,18/45 See PAP report
== END 2024-04-23 10:12 | disposition home or self-care (01) ==
LOC: HO.LNP 10:11
PROVIDERS: Visit Provider Advanced Practice Midwife
DX: Z01.419 Encounter for gynecological examination (general) (routine) without abnormal findings (principal); Z11.51 Encounter for screening for human papillomavirus (HPV)
CPT/HCPCS: 87626; 88175

== ENCOUNTER 2024-05-04 15:20 | Outpatient (REF) | payer OTHER, SELFPAY ==
--- OUTSIDE RECORDS SUMMARY | 2024-05-04 16:21 | XMS_ITS ---
Author Organization Javy Hall III, MD Address [address] [place] [address] [place] [address] Care Team Providers Care Rubber Engraver Name Role Phone Javy Hall Primary Care Provider Allergies Allergen (clinical drug ingredient) Drug/Non Drug Allergy documented on EMR Reaction Allergy Type Onset Date Status No Known Drug Allergy Unknown Drug Allergy Active REASON FOR VISIT Left-sided neck pain, Recent Mejía's palsy, Morbid obesity Medications Medication SIG (Take, Route, Frequency, Duration) Notes Start Date End Date Status Metoclopramide HCl 10 MG 1 tablet before meals Orally every skx hours for nausea 01/31/2024 Active SUMAtriptan Succinate 50 MG 1 tablet as needed, may take second dose at least 2 hours after first dose up to 4 tablets per day as needed Orally Once a day 01/31/2024 Active Gabapentin 100 MG 1 capsule Orally thr ee times a day for 14 days 03/30/2024 Active Lisinopril 10 MG 1 tablet Orally Once a day 11/25/2023 Active Meclizine HCl 50 MG 1 tablet as needed Orally every 12 hrs 01/04/2024 Active Social History Tobacco Use: Social History Observation Description Date Details (start date - stop date) Never Smoker NA - NA Sex Assigned At : Social History Observation Description Sex Assigned At Female Tobacco Use/Smoking Question Answer Notes Patient is a nonsmoker Additional Findings: Tobacco Non-User Aggressive non-smoker Encounters Encounter Location Date Provider Diagnosis Javy Hall III, MD [address] [place] [address] [place] [address] 03/30/2024 Javy Hall Cervical radiculopat hy M54.12 ; Essential hypertension I10 ; Morbid obesity E66.01 ; History of fracture of right ankle Z87.81 and 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 This is likely responsible for the left-sided neck pain that she is experiencing.I have prescribed gabapentin. 03/30/2024 Essential hypertension (ICD-10 - I10) Her blood pressure is in a stable range at this time. We are going to try to reduce it. This will be done was sodium restriction and weight loss. We reviewed her weight loss program. I recommended aggressive weight loss. He'll continue on the lisinopril 10 mg daily. Will be increased if needed. She has had no side effects from this medication. 03/30/2024 Morbid obesity (ICD-10 - E66.01) We have discussed diet and nutrition today. We discussed a referral to the bariatric surgery program at [facility]. We discussed Weight Watchers. We discussed her diet and nutrition. We have discussed the use of semaglutide and tirzepatide. We made a plan to lose weight at a rate of one half of a pound per week through physical activity and a diet restricted in fat calories and sodium. We discussed her 2 pound weight gain.She does not wish to use injected medication at this time. 03/30/2024 History of fracture of right ankle (ICD-10 - Z87.81) The right ankle was fused and is now more swollen than usual. I have requested an x-ray and orthopedic consultation. 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 She is taking valacyclovir and prednisone from the emergency room physician. Close follow-up was arranged. Plan Of Treatment Medication Medication Name Sig Start Date Stop Date Notes Metoclopramide HCl 10 MG 1 tablet before meals Orally every skx hours for nausea 01/31/2024 SUMAtriptan Succinate 50 MG 1 tablet as needed, may take second dose at least 2 hours after first dose up to 4 tablets per day as needed Orally Once a day 01/31/2024 Gabapentin 100 MG 1 capsule Orally thr ee times a day for 14 days 03/30/2024 Lisinopril 10 MG 1 tablet Orally Once a day 11/25/2023 Meclizine HCl 50 MG 1 tablet as needed O rally every 12 hrs 01/04/2024 Next Appt Details Follow Up: As Scheduled, Diann son: OV Provider Name:Javy Hall, 11/28/2024 04:00:00 PM, [address] [place] [address] , [place] [address], [place], [address], Progress Notes * Vicki HARRISONOB:1979 (44 yo F)Acc No.[id number]:03/30/2024 Patient:?Adela HARRISON Provider:?Javy Hall MD :1980???Age:44 Y???Sex:Female D ate:03/30/2024 Address:[address] [place], [place] [id number] Subjective: * Chief Complaints: * ???Left-sided neck painRecen t Mejía's palsyMorbid obesity * HPI: ???v:?This telehealth visit took place over 15 minutes with the patient at home and me in my office.? She gave consent for billing.? She continues to complain of severe pain inn the left neck with range of motion of the neck.? It radiates to the left shoulder.? All recent imaging of the brain and neck showed nerve impingement on the left side.? This was compatible with cervical radiculopatthy.? I have sent a prescription for gabapentin 100 mg 3 times a day to her pharmacy.? I have discussed with her the benefits and limitations of this medication.? She is aware of the possible side effects. She thinks that Mejía's palsy may be slightly better.? She has no facial pain.? She has been compliant with the medications given to her in the emergency room. ???:?Telehealth?Location of provider rendering services:?{...} [address] [facility] [address] ?Location of patient:?address listed in demographics for today's visit ?Patient identification confirmed using:?Name, ?Telehealth method:?Telephone only. Patient not visible to care provider. ?Consent:?Patient verbally consented to treatment, Patient verbally consented to billing insurance company, Patient informed of any privacy concerns related to method of visit ?Total time spent with patient (mins)?15 * ROS:?General/Constitutional:?pain?Left neck and shoulder.?Chills?denies.?Fatigue?admits.?Fever?denies.?ENT:?Decreased hearing?denies.?Respiratory:?Cough?denies.?Cardiovascular:?Chest pain with exertion?denies.?Dyspnea on exertion?denies.?Shortness of breath?denies.?Gastrointestinal:?Constipation?denies.?Decreased appetite?denies.?Diarrhea?denies.?Heartburn?occasional.?Nausea?denies.?Rectal bleeding?denies.?Vomiting?denies.?Hematology:?bruising?denies.?petechiae?denies.?Swollen glands?none have been noted.?Genitourinary:?Frequent urination?at night.?Musculoskeletal:?Muscle aches?denies.?Painful joints?denies.?Sciatica?denies.?Weakness?denies.?Skin:?Itching?denies.?Rash?denies.?Skin lesion(s)?denies.?Neurologic:?Difficulty speaking?denies.?Dizziness?denies.?Headache?denies.?Low back pain?denies.?Psychiatric:?Depressed mood?denies.? * Medical History:? * Surgical History:? 2012, [id number] right ankle fracture 2008,2011tonsillectomy age 8Partial hysterectomy at of third child [id number] stone removal 08/2019, Lumbar discectomy, Dr. Almanza 11/2001No history * Hospitalization/Major Diagno stic Procedure:?No history * Family History:?Father: efrain marino 55 yrs, lung cancer, diagnosed with Cancer, CVD.?Mother: alive 55 yrs, diagnosed with HTN.?Siblings: alive.?1 brother(s) , 4 sister(s) . 2 son(s) , 1 daughter(s) - healthy. .? One of the sisters has thyroid problems. Her mother suffers from depression. She is not aware of any other family history of mental illness or substance use disorder or addiction. * Social History:?Tobacco Use:?Tobacco Use/Smoking?Patient is a?nonsmoker ?Additional Findings: Tobacco Non-User?Aggressive non-smoker ???She was born in [place]. 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 She lives witth her father and cares for him. * Medications:?TakingLisinopri l 10 MG Tablet 1 tablet Orally Once a day Meclizine HCl 50 MG Tablet 1 tablet as needed Orally every 12 hrs Metoclopramide HCl 10 MG Tablet 1 tablet before meals Orally every skx hours for nausea SUMAtriptan Succinate 50 MG Tablet 1 tablet as needed, may take second dose at least 2 hours after first dose up to 4 tablets per day as needed Orally Once a day Taking Lisinopril 10 MG Tablet 1 tablet Orally Once a day Taking Meclizine HCl 50 MG Tablet 1 tablet as needed Orally every 12 hrs Taking Metoclopramide HCl 10 MG Tablet 1 tablet before meals Orally every skx hours for nausea Taking SUMAtriptan Succinate 50 MG Tablet 1 tablet as needed, may take second dose at least 2 hours after first dose up to 4 tablets per day as needed Orally Once a day * Allergies:?No Known Drug All ergy Objective: * Vitals:? * ???Past Orders: ???Imaging:CT head/brain wo con (Order Date - 01/13/2024) (Performed Date - 01/17/2024) ?Clinical Info: MEÑO Marino BOOK APPT STAT AND READING NEEDS TO BE STAT ALSO PER DR HALL,PLEASE FAX COMPLETED RESULTS TO [phone] PLEASE BOOK APPT STAT AND READING NEEDS TO BE STAT ALSO PER DR HALL,PLEASE FAX COMPLETED RESULTS TO [phone] Assessment: * Assessment: 1.?Cervical radiculopathy - M54.12 (Primary)???Notes :Recent imaging of the head and neck in the emergency room March 19, 2024 at [facility] showed severe foraminal narrowing at C5-6 on the left due to spurring. This is likely responsible for the left-sided neck pain that she is experiencing.I have prescribed gabapentin.???2.?Essential hypertension - I10???Notes :Her blood pressure is in a stable range at this time. We are going to try to reduce it. This will be done was sodium restriction and weight loss. We reviewed her weight loss program. I recommended aggressive weight loss. He'll continue on the lisinopril 10 mg daily. Will be increased if needed. She has had no side effects from this medication.???3.?Morbid obesity - E66.01???Notes :We have discussed diet and nutrition today. We discussed a referral to the bariatric surgery program at [facility]. We discussed Weight Watchers. We discussed her diet and nutrition. We have discussed the use of semaglutide and tirzepatide. We made a plan to lose weight at a rate of one half of a pound per week through physical activity and a diet restricted in fat calories and sodium. We discussed her 2 pound weight gain.She does not wish to use injected medication at this time.???4.?History of fracture of right ankle - Z87.81???Notes :The right ankle was fused and is now more swollen than usual. 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 She is taking valacyclovir and prednisone from the emergency room physician. Close follow-up was arranged.??? Plan: * Treatment: 2.?Others? Start Gabapentin Capsule, 100 MG, 1 capsule, Orally, three times a day, 14 days, 42 Capsule, Refills 1.?? * Procedure Codes:?91036 PHONE E/M BY PHYS 11-20 MIN * Preventive Medicine:? ??Counseling:?Care goal follow-up plan:?Counseling for abnormal BMI given?Yes ?Above Normal BMI Follow-up?Dietary management education, guidance, and counseling, Dietary needs education, Exercise promotion: strength training, Exercise promotion: stretching, Feeding regime, Giving encouragement to exercise, Lifestyle education regarding diet, Nutrition / feeding management, Nutrition therapy, Prescribed activity/exercise education, Prescribed diet education, Prescribed dietary intake, Special diet education, Weight monitoring , Intervention, Order not done: Medical or Other reason not done * Follow Up:?As Scheduled (Diann son: OV) * Images: * Sign off status: Completed true * Provider:?Javy Hall MD Date:?03/12 Generated for Enedelia wilkerson/Shy/Joon on:?05/04/2024 04:21 PM EST History and Physical Notes * HPI (History of Present Illness) Category Sub-Category Detail Notes Telehealth Location of [facility] rendering services:: {...} [address] [facility] [address] Location of patient:: address listed in demographics for today's visit Patient identification confirmed using:: Name, Telehealth method:: Telephone only. Roma ent not visible to care provider. Consent:: Patient verbally c onsented to treatment, Patient verbally consented to billing insurance company, Patient informed of any privacy concerns related to method of visit Total time spent with patient (mins): 15
--- OUTSIDE RECORDS SUMMARY | 2024-05-04 16:21 | XMS_ITS ---
Author Organization [facility] Address [address] [place] [address] Care Team Providers Care Veterinary Anatomist Name Role Phone Javy Hall Primary Care Provider KAROLINA Schneider [facility] [phone] Encounters Encounter Location Date Provider Diagnosis [facility] [facility] [address] [facility] [address] [place] [address] 05/01/2024 KAROLINA VANN PLAN OF TREATMENT No Information Progress Notes * Chau HARRISONCharleenOB:1979 (44 yo F)Acc No.[id number]:05/01/2024 Patient:??Adela HARRISON Provider:??KAROLINA VANN :1980?Age:44 Y?Sex:Fe male Date:05/01/2024 Address:[address] [place], [place] [address] Pcp:Javy Hall Subjective: * Chief Complaints: * ? * Medical History:?? Objective: Assessment: Plan: * Treatment: * Images: Billing Information: * Visit Code:?? * Procedure Codes:?? * Sign off status: Pending * Provider:?CAMERON VANN Date:?? 025
--- OUTSIDE RECORDS SUMMARY | 2024-05-04 16:22 | XMS_ITS ---
Author Organization Javy Hall III, MD Address [address] [place] [address] Care Team Providers Care Detective Automobile Section Name Role Phone Javy Hall Primary Care Provider Allergies Allergen (clinical drug ingredient) Drug/Non Drug Allergy documented on EMR Reaction Allergy Type Onset Date Status No Known Drug Allergy Unknown Drug Allergy Active REASON FOR VISIT Telehealth Medications Medication SIG (Take, Route, Frequency, Duration) Notes Start Date End Date Status Meclizine HCl 50 MG 1 tablet as needed Orally every 12 hrs 01/04/2024 Active Metoclopramide HCl 10 MG 1 tablet before meals Orally every skx hours for nausea 01/31/2024 Active SUMAtriptan Succinate 50 MG 1 tablet as needed, may take second dose at least 2 hours after first dose up to 4 tablets per day as needed Orally Once a day 01/31/2024 Active Gabapentin 100 MG 1 capsule Orally thr ee times a day 03/30/2024 Active Lisinopril 10 MG 1 tablet Orally Once a day 11/25/2023 Active Social History Tobacco Use: Social History Observation Description Date Details (start date - stop date) Never Smoker NA - NA Sex Assigned At : Social History Observation Description Sex Assigned At Female Tobacco Use/Smoking Question Answer Notes Patient is a nonsmoker Additional Findings: Tobacco Non-User Aggressive non-smoker Vital Signs Height 67.5 in 04/05/2024 Weight 276 lbs 04/05/2024 BMI 42.59 kg/m2 04/05/2024 Encounters Encounter Location Date Provider Diagnosis Javy Hall III, MD [address] [place] [address] [place] [address] 04/05/2024 Javy Hall Cervical radiculopat M54.12 Assessments Encounter Date Diagnosis (ICD Code) Assessment Notes Treat ment Notes Treatment Clinical Notes 04/05/2024 Cervical radiculopathy (ICD-10 - M54.12) Recent imaging of the head and neck in the emergency room March 19, 2024 at [facility] showed severe foraminal narrowing at C5-6 on the left due to spurring. This is likely responsible for the left-sided neck pain that she is experiencing.I have prescribed gabapentin. Plan Of Treatment Medication Medication Name Sig Start Date Stop Date Notes Meclizine HCl 50 MG 1 tablet as needed O rally every 12 hrs 01/04/2024 Metoclopramide HCl 10 MG 1 tablet before meals Orally every skx hours for nausea 01/31/2024 SUMAtriptan Succinate 50 MG 1 tablet as needed, may take second dose at least 2 hours after first dose up to 4 tablets per day as needed Orally Once a day 01/31/2024 Gabapentin 100 MG 1 capsule Orally thr ee times a day 03/30/2024 Lisinopril 10 MG 1 tablet Orally Once a day 11/25/2023 Next Appt Details Provider Name:Javy Hall, 11/28/2024 04:00:00 PM, [address] [place] [address], [address], Progress Notes * NINO VickiOB:1979 (44 yo F)Acc No.[id number]:04/05/2024 Patient:?JALYNDEBBIEChau CALIXTOace Provider:?Javy Hall MD :1980???Age:44 Y???Sex:Female D ate:04/05/2024 Address:[address] [place] [id number] Subjective: * Chief Complaints: * ???1. Telehealth. * HPI: ???:?Telehealth?Location of provider rendering services:?{...} [address] [place] [address] [address] [place] [address] ?Location of patient:?address listed in demographics for today's visit ?Patient identification confirmed using:?Name, ?Telehealth method:?Telephone only. Patient not visible to care provider. ?Consent:?Patient verbally consented to treatment, Patient verbally consented to billing insurance company, Patient informed of any privacy concerns related to method of visit ?Total time spent with patient (mins)?15 * ROS:?General/Constitutional:?pain?only normal aches and pains.?Chills?denies.?Fatigue?admits.?Fever?denies.?ENT:?Decreased hearing?denies.?Respiratory:?Cough?denies.?Cardiovascular:?Chest pain with exertion?denies.?Dyspnea on exertion?denies.?Shortness of breath?denies.?Gastrointestinal:?Constipation?denies.?Decreased appetite?denies.?Diarrhea?denies.?Heartburn?denies.?Nausea?denies.?Rectal bleeding?denies.?Vomiting?denies.?Hematology:?bruising?denies.?petechiae?denies.?Swollen glands?none have been noted.?Genitourinary:?Frequent urination?denies.?Musculoskeletal:?Muscle aches?denies.?Painful joints?denies.?Sciatica?denies.?Weakness?denies.?Skin:?Itching?denies.?Rash?denies.?Skin lesion(s)?denies.?Neurologic:?Difficulty speaking?denies.?Dizziness?denies.?Headache?denies.?Low back pain?denies.?Psychiatric:?Depressed mood?denies.? * Medical History:?lumbar disc disease: HNPs, history lower extremity edema Leivasy syndrome), Childhood meningitis, HPV +, Obesity, Hiatal hernia, Childhood asthma now in active, episodic ureterolithiasis onset July 2012, Episodes of hematochezia in the past, Fractured right ankle 2008, , Partial hysterectomy. 2016. * Surgical History:? 2012, 2017-02-21, repair right ankle fracture 2008,2010, tonsillectomy age 8, Partial hysterectomy at of third child 2017-02-21, kidney stone removal 08/2019, , Lumbar discectomy, Dr. Almanza 11/2001, No history . * Hospitalization/Major Diagno stic Procedure:?No history . * Family History:?Father: efrain marino 55 yrs, [...] Tobacco Non-User?Aggressive non-smoker ???She was born in [place]. 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 She lives witth her father and cares for him. * Medications:?Taking Gabapent in 100 MG Capsule 1 capsule Orally three times a day , Taking Lisinopril 10 MG Tablet 1 tablet Orally Once a day , Taking Meclizine HCl 50 MG Tablet 1 tablet as needed Orally every 12 hrs , Taking Metoclopramide HCl 10 MG Tablet 1 tablet before meals Orally every skx hours for nausea , Taking SUMAtriptan Succinate 50 MG Tablet 1 tablet as needed, may take second dose at least 2 hours after first dose up to 4 tablets per day as needed Orally Once a day , Medication List reviewed and reconciled with the patient * Allergies:?No Known Drug All ergy. Objective: * Vitals:?Ht: 67.5, Wt: 276, B TX:42.59, Wt-k.19. Assessment: * Assessment: 1.?Cervical radiculopathy - M54.12???Notes :Recent imaging of the head and neck in the emergency room March 19, 2024 at [facility] showed severe foraminal narrowing at C5-6 on the left due to spurring. This is likely responsible for the left-sided neck pain that she is experiencing.I have prescribed gabapentin.??? Plan: * Treatment: 2.?Others? Continue Gabapentin Capsule, 100 MG, 1 capsule, Orally, three times a day.?? * Preventive Medicine:? ??Counseling:?Care goal follow-up plan:?Counseling [...] Medical or Other reason not done * Images: * The named appointment provid er may or may not be the originator of this progress note, and it is not deemed complete until electronically signed by the appointment provider. Sign off status: Pending * Provider:?Javy Hall MD Date:?03/12 Generated for Enedelia wilkerson/Shy/eTestephaniasmitting on:?05/04/2024 04:22 PM EST History and Physical Notes * HPI (History of Present Illness) Category Sub-Category Detail Notes Telehealth Location of [facility] rendering services:: {...} [address] [facility] [address] Location of patient:: address listed in demographics [...]
--- OUTSIDE RECORDS SUMMARY | 2024-05-04 16:22 | XMS_ITS | Patient Health Record ---
Author Organization [facility] Address [address] [place] [address] Care Team Providers Care Eating Disorder Specialist Name Role Phone Javy Hall Primary Care Provider KAROLINA Schneider [facility] [phone] REASON FOR REFERRAL No Information Encounters Encounter Location Date Provider Diagnosis [facility] [address] [facility] [address] [place] [address] 05/01/2024 KAROLINA VANN PLAN OF TREATMENT No Information Insurance Providers Payer Name Payer Address Payer Phone Subscriber Number Group Number Insured Name Patient Relationship to Insured Coverage Start Date Coverage End Date [facility] [address] [place] [address] [id number] Adela Vazquez Self - patient is the insured
--- OUTSIDE RECORDS SUMMARY | 2024-05-04 16:22 | XMS_ITS | Clinical Summary ---
Author Organization [facility] Address [address] [place] [address] Care Team Providers Care Material Specialist Name Role Phone Unavailable Primary Care Provider Unavailabl e Surgical History Surgery Date Site/Laterality Comments PARTIAL HYSTERECTOMY 02/2017 PROCEDURE: WI SUPRACERVICAL ABDL HYSTER W/WO RMVL TUBE OVARY; COMMENT: post hemorrhage Medical History Medical History Date Comments History of miscarriage DX:Histor y of miscarriage Gallstones DX:Gallstones Kidney stones DX:Kidney stones Family History Medical History Relation Name Comments Hypertension Father Abdominal Aortic Anuerysm (AAA) Maternal Grandfather Heart attack Maternal Grandfather Lung cancer Maternal Grandmother Bladder Cancer Mother Other: gallstones Mother Relation Name Status Comments Father Alive Maternal Grandfather Maternal Grandmother Mother Alive Social History Tobacco Use Types Packs/Day Years Used Date Smoking Tobacco: Never Smokeless Tobacco: Never Alcohol Use Standard Drinks/Week Comments Yes 0 (1 standard drink = 0.6 oz pur e alcohol) Sex and Gender Information Value Date Recorded Sex Assigned at Not on file Gender Identity Not on file Sexual Orientation Not on file Obstetrics History Plan of Treatment Health Maintenance Due Date Last Done Comments Breast Cancer Screening 1981 DTaP,Tdap,and Td Vaccines (1 - Tdap) 2000 Hepatitis B Vaccines (1 of 3 - 19+ 3-dose series) 2000 Cervical Cancer Screening: P ap Smear 2002 COVID-19 Vaccine (2023-2 5 season) 2023 Influenza Vaccine (#1) 2023 HIB Vaccines Aged Out No longer eligi ble based on patient's age to complete this topic HPV Vaccines Aged Out No longer eligi ble based on patient's age to complete this topic Hepatitis A Vaccines Aged Out No long er eligible based on patient's age to complete this topic IPV Vaccines Aged Out No longer eligi ble based on patient's age to complete this topic MMR Vaccines Aged Out No longer eligi ble based on patient's age to complete this topic Meningococcal ACWY Vaccine Aged Out N o longer eligible based on patient's age to complete this topic Pneumococcal Vaccine: Pediat rics (0 to 5 Years) and At-Risk Patients (6 to 64 Years) Aged Out No longer eligible b ased on patient's age to complete this topic RSV Immunization Patients Un rylan 20 months Aged Out No longer eligible b ased on patient's age to complete this topic Varicella Vaccines Aged Out No longer eligible based on patient's age to complete this topic
--- OUTSIDE RECORDS SUMMARY | 2024-05-04 16:22 | XMS_ITS ---
Author Organization Javy Hall III, MD Address [address] [place] [address] [place] [address] Care Team Providers Care Primary Clinician Name Role Phone Javy Hall Primary Care Provider REASON FOR VISIT New Concern Social History Sex Assigned At : Social History Observation Description Sex Assigned At Female Encounters Encounter Location Date Provider Diagnosis Javy Hall III, MD [address] [place] [address] [place] [address] 03/29/2024 Javy Hall Plan Of Treatment Next Appt Details Provider Name:Javy Hall, 11/28/2024 04:00:00 PM, [address] [place] [address] [place], [phone], Progress Notes * Chau HARRISONaceDOB:1979 (44 yo F)Acc No.[id number]:03/29/2024 Progress Notes Patient:?NINOChauAdela Provider:?Javy Hall MD :1980???Age:44 Y???Sex:Female D ate:03/29/2024 Address:[address] [place], [place] [id number] Subjective: * Chief Complaints: * ???1. New Concern. * Medical History:? Objective: * Vitals:? Assessment: Plan: * Treatment: * Images: * The named appointment provid er may or may not be the originator of this progress note, and it is not deemed complete until electronically signed by the appointment provider. Sign off status: Pending * Provider:?Javy Hall MD Date:?03/11 Generated for Enedelia wilkerson/Shy/Joon on:?05/04/2024 04:21 PM EST
--- OUTSIDE RECORDS SUMMARY | 2024-05-04 16:22 | XMS_ITS | Patient Health Record ---
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 Role Phone Javy Hall Primary Care Provider Allergies Allergen (clinical drug ingredient) Drug/Non Drug Allergy documented on EMR Reaction Allergy Type Onset Date Status No Known Drug Allergy Unknown Drug Allergy Active Results Component Value Reference Range Notes URINE DIP STICK Reviewed date:11/25/2023 03:48:05 PM Interpretation:normal Performing Lab: Notes/Report: normal SG 1.015 1.005 - 1.025 pH 5.0 5.0 - 9.0 TAMMY neg Negative - NIT neg Negative - PRO trace Negative - Trace GLU neg Negative - KET neg Negative - UBG 0.2 0.1 - 1.8 ESME neg 0.2 - 1.3 BLD neg Negative - Menstrating NO Lipid Panel Reviewed date:12/02/2023 03:42:36 PM Interpretation: Performing Lab:[facility], [address] [place] [phone] Notes/Report: Triglycerides 151 <150 mg/dL Desirable Triglyceride: less than 150 mg/dL Borderline High Triglyceride 150-199 mg/dL High Triglyceride: 200-499 mg/dL Very High Triglyceride: greater than or equal to 5OO mg/dL Cholesterol 172 <200 mg/dL Desirable Cholesterol: less than 200 mg/dL Borderline High Cholesterol: 200-239 mg/dL High Cholesterol: greater than 239 mg/dL LDL Cholesterol Calculated 97 <100 mg/dL Desirable LDL: less than 100 mg/dL Near Optimal/Above Optimal LDL: 110-129 mg/dL Borderline High LDL: 130-159 mg/dL High LDL: 160-189 mg/dL Very High LDL: greater than or equal to 190 mg/dL HDL Cholesterol 45 >40 mg/dL Desirable HDL: greater than 40 mg/dL Note: This HDL assay may give artificially low results in patients with liver disease. Free T4 (Free Thyroxine) Reviewed date:12/02/2023 03:42:36 PM Interpretation: Performing Lab:[facility], [address] [place] [phone] Notes/Report: Free T4 (Free Thyroxine) 0.85 0.71-1.85 ng/dL CT head/brain wo con Reviewed date:01/18/2024 08:09:54 PM Interpretation: Performing Lab: Notes/Report: [address] [address] [address] Scan Report Signed Patient: Adela Harrison MR#: [id number] : 1980 Acct:[id number] Age/Sex: 43 / F ADM Date: 01/17/24 Loc: HO.CT Attending Dr: Javy Hall MD Ordering Physician: Javy Hall MD Date of Service: 01/17/24 Procedure(s): CT head/brain wo IV con Accession Number(s): [id number] cc: Javy Hall MD EXAMINATION: CT HEAD WITHOUT CONTRAST CLINICAL INFORMATION: Occipital neuralgia COMPARISON: None available. TECHNIQUE: Contiguous axial imaging was performed from the skull base to vertex without intravenous administration of contrast. This CT examination was performed using dose optimization techniques as appropriate, variously including the following: *Automated exposure control *Adjustment of mA and/or kV according to patient size (this includes techniques or standardized protocols for targeted exams where dose is matched to indication/reason for exam; i.e. extremities or head) *Use of iterative reconstruction technique DLP: 723 mGy-cm FINDINGS: No intra or extra-axial fluid collection or hemorrhage, mass, or mass effect. Calvarium intact. CT/CT head/brain wo IV con IMPRESSION: No acute intracranial pathology. Electronically signed by: Yony Moss MD 01/17/2024 04:28 PM EDT Dictated By: Yony Moss MD Signed By: <Electronically signed by Yony Moss MD in OV> 01/17/241627 DD/ 34 TD/TT: 01/17/241445 Matrix Plater: [address] [address] [address] Scan Report Signed Patient: Adela Harrison MR#: [id number] : 1980 Acct:[id number] Age/Sex: 43 / F ADM Date: 01/17/24 Loc: HO.CT Attending Dr: Javy Hall MD Ordering Physician: Javy Hall MD Date of Service: 01/17/24 Procedure(s): CT head/brain wo IV con Accession Number(s): [id number] cc: Javy Hall MD EXAMINATION: CT HEAD WITHOUT CONTRAST CLINICAL INFORMATION: Occipital neuralgia COMPARISON: None available. TECHNIQUE: Contiguous axial imaging was performed from the skull base to vertex without intravenous administration of contrast. This CT examination was performed using dose optimization techniques as appropriate, various ly including the following: *Automated exposure control *Adjustment of mA and/or kV according to patient size (this includes techniques or standardized protocols for targeted exams where dose is matched to indication/reason for exam; i.e. extremities or head) *Use of iterative reconstruction technique DLP: 723 mGy-cm FINDINGS: No intra or extra-ax ial fluid collection or hemorrhage, mass, or mass effect. Calvarium intact. CT/CT head/brain wo IV con IMPRESSION: No acute intracrania l pathology. Electronically terry d by: Yony Moss MD 01/17/2024 04:28 PM EDT Dictated By: Yony Moss MD Signed By: <Electronically signed by Yony Moss MD in OV> 01/17/241627 DD/ 34 TD/TT: 01/17/241445 Matrix Plater: Complete Blood Count Auto Di ff Reviewed date:12/02/2023 03:42:35 PM Interpretation: Performing Lab:[facility], [address] [place] [phone] Notes/Report: White Blood Count 6.8 4.8-10.8 X10*3/uL Red Blood Count 4.48 4.20-5.50 X10*6/uL Hemoglobin 13.5 12.0-16.0 g/dl Hematocrit 39.8 37.0-47.0 % Mean Corpuscular Volume 88.8 80.0-98.0 fL Mean Corpuscular Hemoglobin 30.1 27.0-33.0 pg Mean Corpuscular HGB Conc 33.9 31.0-35.0 g/dl Red Cell Distribution Width 12.2 11.0-16.0 % Platelet Count 289 160-400 X10*3/uL Mean Platelet Volume 10.5 9.4-12.3 fL Neutrophils Percent Auto 66.5 45-73 % Imm Gran Pct Auto 0.3 0.0-0.4 % Lymphocytes Percent Auto 23.4 20-40 % Monocytes Percent Auto 7.2 2-11 % Eosinophils Percent Auto 2.2 0-4 % Basophils Percent Auto 0.4 0-2 % NRBC Pct Auto 0.0 0.0-0.2 /100WBC Neutrophils Absolute Auto 4.5 2.0-8.3 x10*3/u L Imm Gran Abs Auto 0.02 0.00-0.03 X10*3/uL Lymphocytes Absolute Auto 1.6 1.2-4.9 X10*3/u L Monocytes Absolute Auto 0.5 0.1-1.2 X10*3/uL Eosinophils Absolute Auto 0.2 0.0-0.4 X10*3/u L Basophils Absolute Auto 0.0 0.0-0.2 X10*3/uL NRBC Abs Auto 0.000 0.0-0.012 X10*3/uL Comprehensive [place]. Panel Fa st Reviewed date:12/02/2023 03:42:36 PM Interpretation: Performing Lab:[facility], [address] [place] [phone] Notes/Report: Sodium 139 135-145 mmol/L Potassium 4.3 3.3-5.1 mmol/L Chloride 106 96-108 mmol/L Carbon Dioxide 27 22-29 mmol/L Anion Gap 10 12-20 Blood Urea Nitrogen 14 9-16 mg/dL Creatinine 0.86 0.5-1.4 mg/dL Estimated Glomerular Filt Rate > 60 NOTE: For -Malian individuals, multiply the result by 1.210. Chronic Kidney Disease: Estimated GFR < 60 mL/min/1.73m2 Severe Kidney Disease: Estimated GFR < 15 mL/min/1.73m2 Glucose Fasting 107 60-99 mg/dL A fasting glucose from 100-125 mg/dl is considered impaired (pre-diabetes). Calcium 9.4 8.4-10.2 mg/dL Bilirubin Total 1.3 0.0-1.0 mg/dL Aspartate Amino Transferase 22 5-31 U/L Alanine Aminotransferase 31 0-31 U/L Total Protein 6.8 6.5-8.0 g/dL Albumin Level 4.0 3.5-5.0 g/dL Alkaline Phosphatase 64 39-117 U/L Thyroid Stimulating Hormone Reviewed date:12/02/2023 03:42:36 PM Interpretation: Performing Lab:[facility], [address] [place] [phone] Notes/Report: Thyroid Stimulating Hormone 1.13 0.32-4.0 uIU/mL TSH 3rd Generation ([facility]) CT NG by PCR Reviewed date:04/26/2024 01:31:19 PM Interpretation: Performing Lab:[facility], [address] [place] [phone] Notes/Report: Vaginal CT PCR NOT DETECTED Not Detect. A not detected test result does not exclude the possibility of infection because test results can be affected by improper specimen collection, concurrent antibiotic therapy, or the number of organisms in the specimen which may be below the sensitivity of the test. As with many diagnostic tests, results from the Xpert CT/NG assay should be interpreted in conjunction with other laboratory and clinical data available to the clinician. Xpert CT/NG performance has not been evaluated in patients less than 14 years of age. The assay should not be used for the evaluation of suspected sexual abuse or for other medico-legal indications. Additional testing is recommended in any circumstance when false positive or false negative results could lead to adverse medical, social or psychological consequences. NG PCR NOT DETECTED Not Detect. A not detected test result does not exclude the possibility of infection because test results can be affected by improper specimen collection, concurrent antibiotic therapy, or the number of organisms in the specimen which may be below the sensitivity of the test. As with many diagnostic tests, results from the Xpert CT/NG assay should be interpreted in conjunction with other laboratory and clinical data available to the clinician. Xpert CT/NG performance has not been evaluated in patients less than 14 years of age. The assay should not be used for the evaluation of suspected sexual abuse or for other medico-legal indications. Additional testing is recommended in any circumstance when false positive or false negative results could lead to adverse medical, social or psychological consequences. Bacterial Vaginosis Panel Reviewed date:04/26/2024 01:31:19 PM Interpretation: Performing Lab:[facility], [address] [place] [phone] Notes/Report: Trichomonas vaginalis PCR NOT DETECTED Not Detect Bacterial Vaginosis PCR POSITIVE Negative The BV organism targets of the Xpert Xpress MVP test can be commensal in women; Xpert Xpress MVP positive results for bacterial vaginosis should be considered in conjunction with other clinical and patient information to determine the disease status. Organisms that are not detected by the Xpert Xpress MVP test have also been reported to be associated with BV and aerobic vaginitis. The Xpert Xpress MVP test performance has not been evaluated in patients under the age of 14. [employer] PCR NOT DETECTED Not Detect Swetha glab krusei PCR NOT DETECTED Not Detect Reason For Referral Reason Consult and Treat Ro utine Gynecological Exam Diagnosis 1 Routine gynecologica l examination (Z01.419) Referral Organization Javy Hall III, MD Referring Provider First Name Javy Referring Provider Last Name Hall Referring Provider Speciality Internal edicine Referred Organization [facility] nter Referred Provider [facility]BGYN Referred Address [address] [place] [address],[place], [place],[id number], Referred Provider Specialty OB - Gynecol ogy General Notes Kelsie Nathan 2023 10:04:13 AM EDT > Faxed referral with progress note. Referral Priority Routine Referral Appointment Date 03/19/2024 Reason Evaluate and Treat Newly Diagnosed Mejía's Palsy Migraine Diagnosis 1 Migraine with aura a nd without status migrainosus, not intractable (G43.109) Diagnosis 2 Migraine (G43.909) Diagnosis 3 Mejía's palsy (G51.0) Referral Organization Javy Hall III, MD Referring Provider First Name Javy Referring Provider Last Name Hall Referring Provider Speciality Internal edicine Referred Provider [facility], Neurology Referred Provider Specialty Neurology General Notes Kelsie Lopez 03/26/2024 03:43:28 PM > Referral was faxed with progress note on 03/23/24. Patients US on 03/26/24 was done and faxed results as well., Kelsie Lopez 04/12/2024 03:06:19 PM > Spoken to Viola at [facility]. Referral was received and went in review on 04/09/24. Was told to call back on Tuesday04/16/24 to find out if patient has been contacted or scheduled. Referral Priority Routine Medications Medication SIG (Take, Route, Frequency, Duration) [...] tablet Orally Once a day 11/25/2023 Active Immunizations Vaccine Route Administration Date Status Comme nts COVID PFIZER Unknown 11/14/2020 Administered COVID PFIZER Unknown 12/05/2020 Administered Social History Tobacco Use: Social History Observation Description Date Details (start date - stop date) Never Smoker NA - NA Sex Assigned At : Social History Observation Description Sex Assigned At Female Tobacco Use/Smoking Question Answer Notes Patient is a nonsmoker Additional Findings: Tobacco Non-User Aggressive non-smoker Alcohol Screen Question Answer Notes Did you have a drink containing alcohol in the p ast year? No Points 0 Interpretation Negative Problems Problem Type SNOMED Code ICD Code Onset Dates Problem Status W/U Status Risk Notes Problem Lumbar radiculopathy (844263373) Lumbar radiculopathy (M54.16) Active confirmed She will continue on current therapy and avoid exacerbating the pain into the images can be obtained. She will proceed to injections to see if the pain can be reduced. Conservative measures are in place. Problem 37965833 Anxiety (F41.9) Active confirmed The symptoms of depression and anxiety have resolved. No medication is necessary. She'll be followed periodically. Problem 003940567 Cervical low ris k human papillomavirus (HPV) DNA test positive (R87.820) Active confirmed She was [facility] care. Problem 28033951 Ureterolithiasis (N20.1) Active confirmed She has had no episodes of renal colic since her last visit. She denies any hematuria. Problem 41566182 Essential hypertension (I10) Active confirmed Her blood pressure is in a stable range at this time. We are going to try to reduce it. This will be done was sodium restriction and weight loss. We reviewed her weight loss program. I recommended aggressive weight loss. He'll continue on the lisinopril 10 mg daily. Will be increased if needed. She has had no side effects from this medication. Problem 242657282 Degenerative joint disease (DJD) of lumbar spine (M47.816) Active confirmed Her back elvira n has improved and is occasional. She is able to conduct all of the activities daily life. No change in her treatment was necessary today. Problem 20657490 Cervical radiculopathy (M54.12) Active confirmed Recent imaging of the head and neck in the emergency room March 19, 2024 at [facility] showed severe foraminal narrowing at C5-6 on the left due to spurring. This is likely responsible for the left-sided neck pain that she is experiencing. I have prescribed gabapentin. Problem 01837653 Hiatal hernia (K44.9) Active confirmed Her occasional reflux is controlled with xsdx-hdx-iizy ter medications. Problem Migraine (56484657) Migraine (G43.909) Active confirmed Problem 252609003 TIA (transient ischemic attack) (G45.9) Active confirmed Problem 010841011 Morbid obesity (E66.01) Active confirmed We have discussed diet and nutrition today. We discussed a referral to the bariatric surgery program at [facility]. We discussed Weight Watchers. We discussed her [...] to use injected medication at this time. Problem 352631354 History of meningitis (Z86.61) Active confirmed This is a resolved problem of historical value only. Problem 112266405 History of fracture of right ankle (Z87.81) Active confirmed The right ankle was fused and is now more swollen than usual. I have requested an x-ray and orthopedic consultation. 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 She is taking valacyclovir and prednisone from the emergency room physician. Close follow-up was arranged. Problem 884091183579134 Asymptomatic stenosis of left carotid artery without infarction (I65.22) Active confirmed When she was in the emergenccy room March 19, [address] angiogram of the head and neck revealed narrowing of the proximal left intracranial supraclinoid portion of the left internal carotid artery. This issue will be addressed. Vital Signs Heart Rate 68 /min 03/22/2024 Temperature 98.8 degrees Fahrenheit 03/22/2024 Blood pressure diastolic 80 mm Hg 03/22/2024 Height 67.5 in 03/22/2024 Blood pressure systolic 138 mm Hg 03/22/2024 Weight 276 lbs 03/22/2024 BMI 42.59 kg/m2 03/22/2024 Encounters Encounter Location Date Provider Diagnosis Javy Hall III, MD [address] [place] [address] [place] [phone] 11/25/2023 Javy Hall Morbid obesity E66.0 1 ; Degenerative joint disease (DJD) of lumbar spine M47.816 ; Cervical low risk human papillomavirus (HPV) DNA test positive R87.820 ; Hiatal hernia K44.9 ; Ureterolithiasis N20.1 ; Essential hypertension I10 and History of fracture of right ankle Z87.81 Javy Hall III, MD [address] [place] [address] [place] [phone] 12/16/2023 Javy Hall Degenerative joint disease (DJD) of lumbar spine M47.816 ; Ureterolithiasis N20.1 ; Morbid obesity E66.01 and Essential hypertension I10 Javy Hall III, MD [address] [place] [address] [place] [phone] 01/04/2024 Javy Hall Essential hypertensi on I10 ; Ureterolithiasis N20.1 ; Morbid obesity E66.01 ; Lumbar radiculopathy M54.16 and Labyrinthitis of both ears H83.03 Javy Hall III, MD [address] [place] [address] [place] [address] 01/09/2024 Javy Hall Occipital neuralgia M54.81 ; Morbid obesity E66.01 ; Lumbar radiculopathy M54.16 ; Essential hypertension I10 and Vertigo R42 Javy Hall III, MD [address] [place] [address] [place] [address] 01/31/2024 Javy Hall Chronic migraine wit h aura without status migrainosus, not intractable G43.E09 ; Degenerative joint disease (DJD) of lumbar spine M47.816 ; Cervical low risk human papillomavirus (HPV) DNA test positive R87.820 ; Hiatal hernia K44.9 ; Ureterolithiasis N20.1 ; Morbid obesity E66.01 and Essential hypertension I10 Javy Hall III, MD [address] [place] [address] [place] [address] 03/22/2024 Javy Hall Left-sided Mejía's pa lsy G51.0 ; Asymptomatic stenosis of left carotid artery without infarction I65.22 ; Cervical radiculopathy M54.12 ; Essential hypertension I10 ; Morbid obesity E66.01 and Lumbar radiculopathy M54.16 Javy Hall III, MD [address] [place] [address] [place] [address] 03/30/2024 Javy Hall Cervical radiculopat hy M54.12 ; Essential hypertension I10 ; Morbid obesity E66.01 ; History of fracture of right ankle Z87.81 and Left-sided Mejía's palsy G51.0 Javy aHll III, MD [address] [place] [address] [place] [address] 12/26/2023 Javy Hall III, MD [address] [place] [address] [place] [address] 01/13/2024 Javy Hall Occipital neuralgia M54.81 Javy Hall III, MD [address] [place] [address] [place] [address] 03/22/2024 Javy Hall Assessments Encounter Date Diagnosis (ICD Code) Assessment Notes T reatment Notes Treatment Clinical Notes 11/25/2023 Degenerative joint disease (DJD) of lumbar spine (ICD-10 - M47.816) She was instructed on how to sleep and how to use a heating pad. She will refrain from heavy lifting. 11/25/2023 Morbid obesity (ICD- 10 - E66.01) We have discussed diet and nutrition today. We discussed a referral to the bariatric surgery program at [facility]. We discussed Weight Watchers. We discussed her diet and nutrition. We made a plan to lose weight at a rate of one half of a pound per week through physical activity and a diet restricted in fat calories and sodium. 12/16/2023 Ureterolithiasis (ICD-10 - N20.1) She has had no episodes of renal colic since her last visit. She denies any hematuria. 12/16/2023 Degenerative joint disease (DJD) of lumbar spine (ICD-10 - M47.816) Her back pain has improved and is occasional. She is able to conduct all of the activities daily life. No change in her treatment was necessary today. 01/04/2024 Ureterolithiasis (ICD-10 - N20.1) She has had no episodes of renal colic since her last visit. She denies any hematuria. 01/04/2024 Essential hypertensi on (ICD-10 - I10) Her blood pressure is [...] had no side effects from this medication. 01/09/2024 Occipital neuralgia (ICD-10 - M54.81) She has had retro-orbital and occipital headaches worsening lately over the last [address] scan has been ordered because of this chronicity and the pattern of pain. Her vertigo has been more lately. She notices significant vertigo when lying down or standing up. 01/09/2024 Morbid obesity (ICD- 10 - E66.01) We have discussed diet and nutrition today. We discussed a referral to the bariatric surgery program at [facility]. We discussed Weight Watchers. We discussed her diet and nutrition. We made a plan to lose weight at a rate of one half of a pound per week through physical activity and a diet restricted in fat calories and sodium. We discussed her 2 pound weight gain. Does not wish to use medication at this point. 01/31/2024 Degenerative joint disease (DJD) of lumbar spine (ICD-10 - M47.816) Her back pain has improved and is occasional. She is able to conduct all of the activities daily life. No change in her treatment was necessary today. 01/31/2024 Chronic migraine wit h aura without status migrainosus, not intractable (ICD-10 - G43.E09) This was her first episode and he came with aura. She was treated in the [facility] emergency room successfully. She received intravenous metoclopramide in the emergency room with a rapid resolution of the pain.I have given her prescriptions for oral metoclopramide and sumatriptan. 03/22/2024 Left-sided Mejía's palsy (ICD-10 - G51.0) Her weakness has not changed. She is taking valacyclovir and prednisone from the emergency room physician. Close follow-up was arranged. 03/22/2024 Asymptomatic stenosi s of left carotid artery without infarction (ICD-10 - I65.22) When she was in the emergenccy room March 19, [address] angiogram of the head and neck revealed narrowing of the proximal left intracranial supraclinoid portion of the left internal carotid artery. This issue will be addressed. 03/30/2024 Essential hypertensi on (ICD-10 - I10) Her blood pressure is [...] no side effects from this medication. 03/30/2024 Cervical radiculopat hy (ICD-10 - M54.12) Recent imaging of the head and neck in the emergency room March 19, 2024 at [facility] showed severe foraminal narrowing at C5-6 on the left due to spurring. This is likely responsible for the left-sided neck pain that she is experiencing.I have prescribed gabapentin. 01/13/2024 Occipital neuralgia (ICD-10 - M54.81) 11/25/2023 Cervical low risk human papillomavirus (HPV) DNA test positive (ICD-10 - R87.820) She was referred back to [facility] for routine reproductive care. 12/16/2023 Morbid obesity (ICD- 10 - E66.01) We have discussed diet and nutrition today. We discussed a referral to the bariatric surgery program at [facility]. We discussed Weight Watchers. We discussed her diet and nutrition. We made a plan to lose weight at a rate of one half of a pound per week through physical activity and a diet restricted in fat calories and sodium. We discussed her 2 pound weight gain. Does not wish to use medication at this point. 01/04/2024 Morbid obesity (ICD- 10 - E66.01) We have discussed diet and nutrition today. We discussed a referral to the bariatric surgery program at [facility]. We discussed Weight Watchers. We discussed her diet and nutrition. We made a plan to lose weight at a rate of one half of a pound per week through physical activity and a diet restricted in fat calories and sodium. We discussed her 2 pound weight gain. Does not wish to use medication at this point. 01/09/2024 Lumbar radiculopathy (ICD-10 - M54.16) She will continue on current therapy and avoid exacerbating the pain into the images can be obtained. She will proceed to injections to see if the pain can be reduced. Conservative measures are in place. 01/31/2024 Cervical low risk human papillomavirus (HPV) DNA test positive (ICD-10 - R87.820) She was referred back to [facility] for routine reproductive care. 03/22/2024 Cervical radiculopat hy (ICD-10 - M54.12) Recent imaging of the head and neck in the emergency room March 19, 2024 at [facility] showed severe foraminal narrowing at C5-6 on the left due to spurring. This is likely responsible for the left-sided neck pain that she is experiencing. 03/30/2024 Morbid obesity (ICD- 10 - E66.01) We have discussed diet and nutrition today. We discussed a referral to the bariatric surgery program at [facility]. We discussed Weight Watchers. We discussed her [...] to use injected medication at this time. 11/25/2023 Hiatal hernia (ICD-1 0 - K44.9) Her occasional reflux is controlled with [id number] medications. 12/16/2023 Essential hypertensi on (ICD-10 - I10) Her blood pressure is [...] had no side effects from this medication. 01/04/2024 Lumbar radiculopathy (ICD-10 - M54.16) She will continue on current therapy and avoid exacerbating the pain into the images can be obtained. She will proceed to injections to see if the pain can be reduced. Conservative measures are in place. 01/09/2024 Essential hypertensi on (ICD-10 - I10) Her blood pressure is [...] had no side effects from this medication. 01/31/2024 Hiatal hernia (ICD-1 0 - K44.9) Her occasional reflux is controlled with [id number] medications. 03/22/2024 Essential hypertensi on (ICD-10 - I10) Her blood pressure is [...] no side effects from this medication. 03/30/2024 History of fracture of right ankle (ICD-10 - Z87.81) The right ankle was fused and is now more swollen than usual. I have requested an x-ray and orthopedic consultation. 11/25/2023 Ureterolithiasis (ICD-10 - N20.1) She has had no episodes of renal colic since her last visit. She denies any hematuria. 01/04/2024 Labyrinthitis of bot h ears (ICD-10 - H83.03) She was given a trial of meclizine. She will report if the headaches and the dizziness resolved. If they do not she will be seen by ENT. 01/09/2024 Vertigo (ICD-10 - R42) She says that the meclizine is helpful but it wears off and the vertigo returns relentlessly. I have ordered a CT scan to evaluate the brain. 01/31/2024 Ureterolithiasis (ICD-10 - N20.1) She has had no episodes of renal colic since her last visit. She denies any hematuria. 03/22/2024 Morbid obesity (ICD- 10 - E66.01) We have discussed diet and nutrition today. We discussed a referral to the bariatric surgery program at [facility]. We discussed Weight Watchers. We discussed her [...] use injected medication at this time. 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 She is taking valacyclovir and prednisone from the emergency room physician. Close follow-up was arranged. 11/25/2023 Essential hypertensi on (ICD-10 - I10) Her blood pressure has been rising to a treatable range. She was begun on 10 mg of lisinopril. A repeat blood work and 21 days was arranged. 01/31/2024 Morbid obesity (ICD- 10 - E66.01) We have discussed diet and nutrition today. We discussed a referral to the bariatric surgery program at [facility]. We discussed Weight Watchers. We discussed her [...] to use injected medication at this time. 03/22/2024 Lumbar radiculopathy (ICD-10 - M54.16) She will continue on current therapy and avoid exacerbating the pain into the images can be obtained. She will proceed to injections to see if the pain can be reduced. Conservative measures are in place. 11/25/2023 History of fracture of right ankle (ICD-10 - Z87.81) The right ankle was fused and is now more swollen than usual. I have requested an x-ray and orthopedic consultation. 01/31/2024 Essential hypertensi on (ICD-10 - I10) Her blood pressure is [...] had no side effects from this medication. Plan Of Treatment Pending Test Test Name Order Date PROFILE, FASTING (COMPREHENSIVE METABOLI C) 11/25/2023 PROFILE, FASTING (COMPREHENSIVE METABOLI C) 04/19/2017 PROFILE, FASTING (COMPREHENSIVE METABOLI C) 02/23/2022 LIPID PANEL 04/19/2017 FREE T4 (FT4) 02/23/2022 TSH (THYROID STIMULATING HORMONE) 2021 TSH (THYROID STIMULATING HORMONE) 2023 CBC w DIFF 02/23/2022 CBC w DIFF 04/19/2017 CBC WITH AUTO DIFF 11/25/2023 SARS COV2 RNA RT PCR 11/28/2019 Magnesium 02/23/2022 Lipid Panel 02/23/2022 Vitamin D 25-OH Total 02/23/2022 US carotid duplex BI 03/22/2024 Next Appt Details Provider Name:Javy Hall, 11/28/2024 04:00:00 PM, [address] [place] [address] [place], [place], [id number], Insurance Providers Payer Name Payer Address Payer Phone Subscriber Number Group Number Insured Name Patient Relationship to Insured Coverage Start Date Coverage End Date [facility] [address] [place] [id number] [id number] Adela Vazquez Self - patient is the insured MEDICAID [address] [employer] [place] [id number] Adela Vazquez Self - patient is the insured Medical (General) History Medical History History ICD Code lumbar disc disease: HNPs history lower extremity edema [place] syn drome) childhood meningitis HPV + obesity hiatal hernia childhood asthma now in active episodic ureterolithiasis onset July 29 episodes of hematochezia in the past fractured right ankle 2008 partial hysterectomy. 2017 Surgical History Surgery Date(Month/Year) No history , Lumbar discectomy, Dr. Almanza 11/2001 kidney stone removal 08/2019 Partial hysterectomy [facility] 2017-02-21 tonsillectomy age 8 repair right ankle fracture 2008,2010 2012, 2017-02-21 Hospitalization History Reason Date(Month/Year) No history
== END 2024-05-04 15:21 | disposition home or self-care (01) ==
LOC: HO.MAMMO 15:20
PROVIDERS: PCP Internal Medicine Medical Oncology; Visit Provider Advanced Practice Midwife
DX: Z12.31 Encounter for screening mammogram for malignant neoplasm of breast (principal)
CPT/HCPCS: 77063; 77067

== ENCOUNTER → 2024-05-04 15:30 | Outpatient (BNV) | payer OTHER, SELFPAY | PROVIDERS: PCP Internal Medicine Medical Oncology; Visit Provider Internal Medicine | DX: Z12.31 Encounter for screening mammogram for malignant neoplasm of breast (principal) | CPT/HCPCS: 77063; 77067 ==

== ENCOUNTER 2024-06-28 00:01 | Emergency (ER) | payer OTHER, SELFPAY ==
--- NOTE | 2024-06-28 | ECG_ITS ---
Test Reason : CP Blood Pressure : */* mmHG Vent. Rate : 76 BPM Atrial Rate : 76 BPM P-R Int : 156 ms QRS Dur : 82 ms QT Int : 400 ms P-R-T Axes : 43 24 12 degrees QTcB Int : 450 ms Normal sinus rhythm with sinus arrhythmia Cannot rule out Anterior infarct (cited on or before 02-Feb-2023) Abnormal ECG When compared with ECG of 02-Feb-2023 05:32, No significant change was found Referred By: Generic ED Physician Electronically Signed By: Arsenio Campbell
--- NOTE | ~2024-06-28 | XR_ITS ---
CLINICAL HISTORY: chest pain 2 view chest x-ray Comparison: CR/SR - XR CHEST 2V - 01/17/23 09:28 EDT Findings: No consolidation or effusion. Similar prominent/enlarged cardiac silhouette. No acute fracture. IMPRESSION: 1. No acute findings. This document has been electronically signed by: Morris Granger MD on 06/28/2024 00:52:02
[2024-06-28 00:09] VITALS: BP 152/93; PULSE 78; RESP 17; TEMP 36.4; O2SAT 97; BMI 39.2
[2024-06-28 00:18] LABS: MANUAL DIFF FLAG NO
[2024-06-28 00:19] LABS: Basophils Absolute Auto 0.1 X10*3/uL (0.0-0.2); Basophils Percent Auto 0.6 % (0-2); Eosinophils Absolute Auto 0.2 X10*3/uL (0.0-0.4); Hematocrit 38.6 % (37.0-47.0); Hemoglobin 13.4 g/dl (12.0-16.0); Imm Gran Abs Auto 0.02 X10*3/uL (0.00-0.03); Imm Gran Pct Auto 0.2 % (0.0-0.4); Lymphocytes Absolute Auto 2.3 X10*3/uL (1.2-4.9); Lymphocytes Percent Auto 24.4 % (20-40); Mean Corpuscular HGB Conc 34.7 g/dl (31.0-35.0); Mean Corpuscular Hemoglobin 29.8 pg (27.0-33.0); Mean Platelet Volume 10.1 fL (9.4-12.3); Monocytes Absolute Auto 0.7 X10*3/uL (0.1-1.2); Monocytes Percent Auto 6.9 % (2-11); Neutrophils Absolute Auto 6.3 x10*3/uL (2.0-8.3); Neutrophils Percent Auto 65.9 % (45-73); Platelet Count 347 X10*3/uL (160-400); Red Blood Count 4.49 X10*6/uL (4.20-5.50); Red Cell Distribution Width 12.5 % (11.0-16.0); White Blood Count 9.5 X10*3/uL (4.8-10.8)
--- NOTE | 2024-06-28 00:39 | ED_ITS ---
HPI - Chest Pain General Chief Complaint: Chest Pain Stated Complaint: CP Time Seen by Provider: 06/28/24 00:27 Source: patient, RN notes reviewed and old records reviewed Mode of arrival: ambulatory Limitations: no limitations History of Present Illness ED Provider: Kalpesh MIRANDA narrative: 44-year-old female with past medical history significant for obesity, hypertension, anxiety presents for evaluation of chest pain. Burning chest pain that radiates into the left side of her neck for the last 2 hours. The pain started while she was lying down trying to go to sleep. She denies any associated symptoms including nausea, vomiting, abdominal pain, cough, shortness of breath, fevers, chills Denies any history of cardiac disease. She states that her mother does have a history of coronary artery disease Denies any leg swelling, recent travel The patient gave herself Aspirin 162 mg prior to arrival without improvement in her symptoms. She rates her discomfort as a 6/10 Related Data Home Medications ?Medication ?Instructions ?Recorded ?Confirmed lisinopril 10 mg tablet 10 mg PO DAILY 04/23/24 04/23/24 Allergies Allergy/AdvReac Type Severity Reaction Status Date / Time No Known Allergies Allergy Verified 06/28/24 00:10 [No Known Allergies*] Review of Systems 2 Constitutional: Constitutional: Denies body ache(s), Denies chills and Denies fever(s) Eyes: Eyes: Denies irritation ENT: Denies vertigo and Denies dizziness Cardiovascular: Cardiovascular: Reports chest pain, Reports chest pain at rest, Denies epigastric discomfort, Reports radiating jaw, neck or arm pain, Denies palpitations and Denies dyspnea Respiratory: Respiratory: Denies cough and Denies dyspnea Gastrointestinal: Gastrointestinal: Denies abdominal pain, Denies nausea and Denies vomiting Musculoskeletal: Musculoskeletal: Denies back pain Integumentary/Breasts: Skin/Breast: Denies rash Neurologic: Denies vertigo and Denies dizziness Psychiatric: Psychiatric: Reports anxiety Endocrine: Endocrine: Denies palpitations PMFSH Past Medical History Medical History Gall bladder disease Migraines HTN (hypertension) Surgical History S/P H/O: hysterectomy History of ankle surgery Social History Social History Alcohol intake: current Alcohol intake frequency: does not drink Alcohol type: wine Smoked in Last 30 Days: No Use of substances other than those prescribed or required for medical reasons: No Advance Directives: No Advance Directives Information Provided: Yes Do you have a plan to hurt others: No Plan Patient : No Physical Exam 2 Vital Signs: Vital Signs: Last Vital Signs Temp 97.6 F 06/28/24 00:09 Pulse 66 06/28/24 01:48 Resp 16 06/28/24 01:48 BP 152/93 H 06/28/24 00:09 Pulse Ox 98 06/28/24 01:48 O2 Del Method Room Air 06/28/24 01:48 BMI result Body Mass Index 39.2 Const: General: healthy appearing, comfortable, no acute distress, alert and awake Nutritional Appearance: well nourished Orientation/consciousness: p atient oriented x3 HEENT: Head: Yes normocephalic and Yes atraumatic Eyes: Eyelids: Yes eyelids normal Conjunctivae: conjunctivae normal S clerae: sclerae normal Corneas: corneas normal Pupils: Equal, round and reactive pupils present EOM: EOMs intact bilaterally Neck: Neck: Yes full ROM Resp: Effort & Inspection: normal respiratory effort, able to speak in complete sentences, no audible wheezes and not labored Auscultation: clear to auscultation bilaterally Cardio: Other: No lower extremity edema Rate: regular rate Rhythm: regular rhythm Skin: General skin exam: elasticity normal Neuro: General: patient oriented x3 Cranial nerves: Yes Equal, round and reactive pupils present and Yes Bilaterally intact EOM present Cognition (Neuro): normal cognition Course Reevaluation(s) Reevaluation #1: Repeat troponin negative, patient rules out for ACS Time: 02:10 Medical Decision Making Medical Decision Making MDM Narrative: 44-year-old female past medical history as above presents for evaluation of a burning chest pain. She was report increased stress at her job. Denies associated symptoms including nausea vomiting, cough, shortness of breath. She has no leg swelling. The patient's EKG is normal sinus rhythm with a rate of [address] segment elevations or depressions. Plan for chest x-ray. We will repeat a troponin at 1:30 a.m. as this will be 3 hours after her symptoms started. Differential Diagnosis Differential Diagnoses: The differential diagnosis associated with the presentation includes Chest pain Anxiety ACS Bronchitis Pneumonia Chest wall strain GERD Admission/Observation Consideration of admission/observation: Escalation of care including admission/observation considered Lab Data MDM Lab Attestation statement: I reviewed the patient's lab results. Steatosis or anemia. Normal platelet count. No electrolyte abnormalities. Troponin negative. 06/28/24 00:11 06/28/24 00:11 Labs: Lab Results 06/28/24 06/28/24 Range/Units 00:11 01:31 WBC 9.5 (4.8-10.8) X10*3/uL RBC 4.49 (4.20-5.50) X10*6/uL Hgb 13.4 (12.0-16.0) g/dl Hct 38.6 (37.0-47.0) % MCV 86.0 (80.0-98.0) fL MCH 29.8 (27.0-33.0) pg MCHC 34.7 (31.0-35.0) g/dl RDW 12.5 (11.0-16.0) % Plt Count 347 (160-400) X10*3/uL MPV 10.1 (9.4-12.3) fL Immature Gran % (Auto) 0.2 (0.0-0.4) % Neut % (Auto) 65.9 (45-73) % Lymph % (Auto) 24.4 (20-40) % [place] % (Auto) 6.9 (2-11) % Eos % (Auto) 2.0 (0-4) % Baso % (Auto) 0.6 (0-2) % Lymph # (Auto) 2.3 (1.2-4.9) X10*3/uL [place] # (Auto) 0.7 (0.1-1.2) X10*3/uL Eos # (Auto) 0.2 (0.0-0.4) X10*3/uL Baso # (Auto) 0.1 (0.0-0.2) X10*3/uL Abs Immat Gran (auto) 0.02 (0.00-0.03) X10*3/uL Absolute Neuts (auto) 6.3 (2.0-8.3) x10*3/uL Absolute Nucleated RBC 0.000 (0.0-0.012) X10*3/uL Nucleated RBC % (auto) 0.0 (0.0-0.2) /100WBC Sodium 140 (135-145) mmol/L Potassium 3.7 (3.3-5.1) mmol/L Chloride 106 (96-108) mmol/L Carbon Dioxide 25 (22-29) mmol/L Anion Gap 13 (12-20) BUN 10 (9-16) mg/dL Creatinine 0.78 (0.5-1.4) mg/dL Estim Creat Clear Calc 120.8 Estimated GFR > 60 Random Glucose 101 (60-115) mg/dL Calcium 9.6 (8.4-10.2) mg/dL Total Bilirubin 1.0 (0.0-1.0) mg/dL Direct Bilirubin 0.3 (0.0-0.5) mg/dL AST 31 (5-31) U/L ALT 35 H (0-31) U/L Alkaline Phosphatase 58 (39-117) U/L Troponin I High Sens < 2.7 < 2.7 (<3.5-17.0) ng/L Total Protein 6.9 (6.5-8.0) g/dL Albumin 3.9 (3.5-5.0) g/dL Independent Interpretation I performed an independent interpretation of an: EKG and Plain X-Ray (No focal infiltrates or effusion) Interpretation: Normal sinus rhythm with a rate of 76 beats per minute. No ST segment elevations or depressions. Nondiagnostic EKG Radiology Impression Discussion of test interpretation with radiology: I have reviewed the radiologist's reading. Radiologist Impression: Findings: No consolidation or effusion. Similar prominent/enlarged cardiac silhouette. No acute fracture. IMPRESSION: 1. No acute findings. This document has been electronically signed by: Morris Granger MD on 06/28/2024 00:52:02 Discharge Plan Discharge Clinical Impression: Chest pain Patient Disposition: Home, Self-Care Instructions: Chest Pain (ED) Additional Instructions: Your workup in the ER today was reassuring. This includes your blood work and your repeat blood work, your EKG, and your chest x-ray. Your symptoms may be related past or anxiety. I recommend that you follow-up with your primary doctor, return for new or worsening symptoms Prescriptions: No Action lisinopril 10 mg tablet 10 mg PO DAILY Print Language: Setswana
[2024-06-28 00:44] LABS: Alanine Aminotransferase 35 U/L (0-31); Albumin Level 3.9 g/dL (3.5-5.0); Alkaline Phosphatase 58 U/L (39-117); Anion Gap 13 (12-20); Aspartate Amino Transferase 31 U/L (5-31); Bilirubin Direct 0.3 mg/dL (0.0-0.5); Blood Urea Nitrogen 10 mg/dL (9-16); Calcium 9.6 mg/dL (8.4-10.2); Carbon Dioxide 25 mmol/L (22-29); Chloride 106 mmol/L (96-108); Creatinine Clr Calc Pharmacy 120.8; Estimated Glomerular Filt Rate > 60; Glucose Random 101 mg/dL (60-115); Potassium 3.7 mmol/L (3.3-5.1); Sodium 140 mmol/L (135-145); Total Protein 6.9 g/dL (6.5-8.0); Troponin-I High Sensitivity < 2.7 ng/L (<3.5-17.0)
[2024-06-28 01:48] VITALS: PULSE 66; RESP 16; O2SAT 98
--- NOTE | 2024-06-28 01:51 | PC.NURSE ---
Pt self presents to ED with reports of left sided chest pain burning in nature and radiating into back and neck beginning while trying to fall asleep. Pt reported slight nausea at time of onset. All pain and symptoms since resolved. 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 Offers no complaints at this time. Awaiting repeat troponin results and provider reeval, aware of plan of care.
[2024-06-28 02:01] LABS: Troponin-I High Sensitivity < 2.7 ng/L (<3.5-17.0)
[2024-06-28 02:22] VITALS: BP 152/93; PULSE 66; RESP 16; TEMP 36.4; O2SAT 98
== END 2024-06-28 02:23 | disposition home or self-care (01) ==
PROVIDERS: Physician Assistant; Emergency Provider Internal Medicine; PCP Internal Medicine Medical Oncology
DX: R07.9 Chest pain, unspecified (principal); R11.2 Nausea with vomiting, unspecified; I10 Essential (primary) hypertension; Z79.899 Other long term (current) drug therapy
CPT/HCPCS: 36415; 71046; 80048; 80076; 84484; 85025; 93005; 99283; 99285

== ENCOUNTER → 2024-06-28 00:03 | Outpatient (BNV) | payer OTHER, SELFPAY | PROVIDERS: Emergency Provider Internal Medicine; PCP Internal Medicine Medical Oncology; Visit Provider Internal Medicine Cardiovascular Disease | DX: I49.9 Cardiac arrhythmia, unspecified (principal) | CPT/HCPCS: 93010 ==

== ENCOUNTER → 2024-06-28 | Outpatient (BNV) | payer OTHER, SELFPAY | PROVIDERS: Emergency Provider Internal Medicine; PCP Internal Medicine Medical Oncology; Visit Provider Radiology Diagnostic Radiology | DX: R07.9 Chest pain, unspecified (principal) | CPT/HCPCS: 71046 ==

== ENCOUNTER → 2024-10-05 07:52 | Outpatient (BNV) | payer OTHER, SELFPAY | PROVIDERS: Emergency Provider Emergency Medicine; PCP Internal Medicine Medical Oncology; Visit Provider Radiology Diagnostic Radiology | DX: R07.9 Chest pain, unspecified (principal) | CPT/HCPCS: 71046 ==

== ENCOUNTER 2024-10-05 07:56 | Emergency (ER) | payer OTHER, SELFPAY ==
--- OUTSIDE RECORDS SUMMARY | 2024-08-14 05:45 | XMS_ITS ---
Author Organization Javy Hall III, MD Address [address] [place] [address] [address] Care Team Providers Care C Python Developer Name Role Phone Javy Hall Primary Care Provider Allergies Allergen (clinical drug ingredient) Drug/Non Drug Allergy documented on EMR Reaction Allergy Type Onset Date Status No Known Drug Allergy Unknown Drug Allergy Active REASON FOR VISIT Lumbar puncture culture results, Optic nerve edema, Morbid obesity, Cervical radiculopathy Medications Medication SIG (Take, Route, Frequency, Duration) Notes Start Date End Date Status SUMAtriptan Succinate 50 MG 1 tablet as needed, may take second dose at least 2 hours after first dose up to 4 tablets per day as needed Orally Once a day 01/31/2024 Active Metoclopramide HCl 10 MG 1 tablet before meals Orally every skx hours for nausea 01/31/2024 Active Gabapentin 100 MG 1 capsule [...] nonsmoker Additional Findings: Tobacco Non-User Aggressive non-smoker Problems Problem Type SNOMED Code ICD Code Onset Dates Problem Status W/U Status Risk Notes Problem 63685623 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 She has an appointment coming up with neurology at [facility]. Vital Signs Height 67.5 in 08/14/2024 Weight 258 lbs 08/14/2024 BMI 39.81 kg/m2 08/14/2024 Encounters Encounter Location Date Provider Diagnosis Javy Hall III, MD [address] [place] [address] [place] [address] 08/14/2024 Javy Hall Cervical radiculopat hy M54.12 ; Edema of optic nerve H47.10 ; Degenerative joint disease (DJD) of lumbar spine M47.816 ; Cervical low risk human papillomavirus (HPV) DNA test positive R87.820 ; Hiatal hernia K44.9 ; Ureterolithiasis N20.1 ; Essential hypertension I10 and Morbid obesity E66.01 Assessments Encounter Date Diagnosis (ICD Code) Assessment Notes Treat ment Notes Treatment Clinical Notes 08/14/2024 Cervical radiculopat hy (ICD-10 - M54.12) Recent imaging of the head and neck in the emergency room March 19, 2024 at [facility] showed severe foraminal narrowing at C5-6 on the left due to spurring. This is likely responsible for the left-sided neck pain that she is experiencing.I have prescribed gabapentin. 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 She has an appointment coming up with neurology at [facility]. 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 She is able to conduct all of the activities daily life. No change in her treatment was necessary today. 08/14/2024 Cervical low risk human papillomavirus (HPV) DNA test positive (ICD-10 - R87.820) She was referred back to [facility] for routine reproductive care. 08/14/2024 Hiatal hernia (ICD-1 0 - K44.9) Her occasional reflux is controlled with tpym-okj-fboshpo medications. 08/14/2024 Ureterolithiasis (ICD-10 - N20.1) She has had no episodes of renal colic since her last visit. She denies any hematuria. 08/14/2024 Essential hypertensi on (ICD-10 - I10) Her [...] had no side effects from this medication. 08/14/2024 Morbid obesity (ICD- 10 - E66.01) We have discussed diet and nutrition today. We discussed a referral to the bariatric surgery program at [facility]. We discussed Weight Watchers. We discussed her [...] to use injected medication at this time. Plan Of Treatment Medication Medication Name Sig Start Date Stop Date Notes SUMAtriptan Succinate 50 MG 1 tablet as needed, may take second dose at least 2 hours after first dose up to 4 tablets per day as needed Orally Once a day 01/31/2024 Metoclopramide HCl 10 MG 1 tablet before meals Orally every skx hours for nausea 01/31/2024 Gabapentin 100 MG 1 capsule Orally thr ee times a day 03/30/2024 Lisinopril 10 MG 1 tablet Orally Once a day 11/25/2023 Meclizine HCl 50 MG 1 tablet as needed O rally every 12 hrs 01/04/2024 Next Appt Details Follow Up: as scheduled, Diann son: as scheduled Provider Name:Javy Hall, 11/28/2024 04:00:00 PM, [address] [place] [address] , [place] [address], [place], [address], Progress Notes * Vicki HARRISONOB:1979 (44 yo F)Acc No.[id number]:08/14/2024 Patient: Adela LEACH Provider: Clive Hall MD :1980 A ge:44 Y S ex:Female Date:08/14/2024 Address:[address] [place] [address] ABIEL LANDIS, [id number] Subjective: * Chief Complaints: * L umbar puncture culture resultsOptic nerve edemaMorbid obesityCervical radiculopathy * HPI: * : This telehealth visit took place over 15 min. with the patient at home and me in my office. She gave consent for billing. She was recently hospitalized with neurological symptoms of numbness of the face. An intense evaluation showed edema in one eye, optic nerve. A lumbar puncture was done and she is on this telehealth visit to get the results of the cultures. The fungal viral and bacterial cultures are negative. She was given an appointment to come to the office and be examined. Telehealth L ocation of provider rendering services: { ...} [address] [facility] [address] L ocation of patient: lesa escobar listed in demographics for today's visit P atient identification confirmed using: FREDI Gallagher ame T elehealth method: T elephone only. Patient not visible to care provider. C onsent: P atient verbally consented to treatment, Patient verbally consented to billing insurance company, Patient informed of any privacy concerns related to method of visit T otal time spent with patient (mins) 1 5 * ROS: G eneral/Constitutional: pain o nly normal aches and pains. C hills d enies.?Fatigue a dmits. F ever d enies. E NT: Decreased hearing d enies. R espiratory: Cough d enies. C ardiovascular: Chest pain with exertion d enies. D yspnea on exertion?denies. S hortness of breath d enies. G astrointestinal: Constipation o ccasional. D ecreased appetite d enies. D iarrhea d enies. H eartburn d enies. N ausea d enies. R ectal bleeding d enies. V omiting d enies. H ematology: bruising d enies. p etechiae d enies. S wollen glands n one have been noted. G enitourinary: Frequent urination a t night. M usculoskeletal: Muscle aches d enies. P ainful joints d enies. S ciatica d enies. W eakness d enies. S kin: Itching d enies. R kd d enies. S kin lesion(s)?denies. N eurologic: Difficulty speaking d enies. D izziness d enies.?Headache d enies. L ow back pain d enies. P sychiatric: Depressed mood d enies. * Medical History: * Surgical History: C -section 2012, [id number] right ankle fracture 2008,2010tonsillectomy age 8Partial hysterectomy at of third child [id number] stone removal 08/2019, Lumbar discectomy, Dr. Almanza 11/2001No history * Hospitalization/Major Diagno stic Procedure: N o history * Family History: F ather: alive 55 yrs, lung cancer, diagnosed with Cancer, CVD. M other: alive 55 yrs, diagnosed with HTN. S iblings: alive. 1 brother(s) , 4 sister(s) . 2 son(s) , 1 daughter(s) - healthy. . One of the sisters has thyroid problems. Her mother suffers from depression. She is not aware of any other family history of mental illness or substance use disorder or addiction. * Social History: T obacco Use: T obacco Use/Smoking P atient is a n onsmoker A dditional Findings: Tobacco Non-User A ggressive non-smoker S he was born in [place]. 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 She lives witth her father and cares for him. * Medications: T akingLisinopril 10 MG Tablet 1 tablet Orally Once [...] day as needed Orally Once a day Gabapentin 100 MG Capsule 1 capsule Orally three times a day Medication List reviewed and reconciled with the patientTaking Lisinopril 10 MG Tablet 1 tablet Orally [...] as needed Orally Once a day Taking Gabapentin 100 MG Capsule 1 capsule Orally three times a day Medication List reviewed and reconciled with the patient * Allergies: N o Known Drug Allergyno[Allergies Verified] Objective: * Vitals: H t: 67.5, Wt: 258, BMI:39.81, Ht-cm: 171.45, Wt-k.03. Assessment: * Assessment: 1. E cassie of optic nerve - H47.10 (Primary) N otes :This was a finding on the MRI of the brain done 2 weeks ago when she was hospitalized. She has an appointment coming up with neurology at [facility]. 2 . C ervical radiculopathy - M54.12 N otes :Recent imaging of the head and neck in the emergency room March 19, 2024 at [facility] showed severe foraminal narrowing at C5-6 on the left due to spurring. This is likely responsible for the left-sided neck pain that she is experiencing.I have prescribed gabapentin. 3 . D egenerative joint disease (DJD) of lumbar spine - M47.816 ?Notes :Her back pain has improved and is occasional. She is able to conduct all of the activities daily life. No change in her treatment was necessary today. 4 . C ervical low risk human papillomavirus (HPV) DNA test positive - R87.820? Notes :She was referred back to [facility] for routine reproductive care. 5 . H iatal hernia - K44.9 N otes :Her occasional reflux is controlled with pjeo-fza-cwfound medications. 6 . U reterolithiasis - N20.1 N otes :She has had no episodes of renal colic since her last visit. She denies any hematuria. 7 . E ssential hypertension - I10 N otes :Her blood pressure is in a stable range at this time. We are going to try to reduce it. This will be done was sodium restriction and weight loss. We reviewed her weight loss program. I recommended aggressive weight loss. He'll continue on the lisinopril 10 mg daily. Will be increased if needed. She has had no side effects from this medication. 8 . M orbid obesity - E66.01 N otes :We have discussed diet and nutrition today. We discussed a referral to the bariatric surgery program at [facility]. We discussed Weight Watchers. We discussed her [...] to use injected medication at this time. Plan: * Treatment: 2. O thers Continue Gabapentin Capsule, 100 MG, 1 capsule, Orally, three times a day. * Procedure Codes: 9 8012 SYNCH AUDIO-ONLY EST SF 10 * Preventive Medicine: Counseling: C are goal follow-up plan: Counseling for abnormal BMI given Y es Above Normal BMI Follow-up D ietary management education, guidance, and counseling, Dietary needs education, Exercise promotion: strength training, Exercise promotion: stretching, Feeding regime, Giving encouragement to exercise, Lifestyle education regarding diet, Nutrition / feeding management, Nutrition therapy, Prescribed activity/exercise education, Prescribed diet education, Prescribed dietary intake, Special diet education, Weight monitoring , Intervention, Order not done: Medical or Other reason not done * Follow Up: a s scheduled (Reason: as scheduled) * Images: * Sign off status: Completed true * Provider: Clive Hall MD Date: 0 08/14/2024 Generated for Enedelia wilkerson/Shy/eTransmitting on: 0 10/05/2024 09:09 AM EDT History and Physical Notes * HPI (History of Present Illness) Category Sub-Category Detail Notes Telehealth Location of [facility] rendering services:: {...} [address] [facility] [address] Location of patient:: address listed in demographics [...]
--- NOTE | ~2024-10-05 | XR_ITS ---
EXAMINATION: XR CHEST 2 VIEWS HISTORY: cp COMPARISON: Comparison is made with the prior examination dated 06/28/2024. FINDINGS: PA and lateral views of the chest are submitted. The lungs are expanded and clear. There is no pleural effusion, pneumothorax, or pulmonary vascular congestion. The heart is normal in size. The bones are intact. XR/XR chest 2V IMPRESSION: No acute cardiopulmonary abnormality. Electronically signed by: Javy Parikh MD 10/05/2024 08:58 AM EDT
--- NOTE | 2024-10-05 07:57 | ECG_ITS ---
Test Reason : CP Blood Pressure : */* mmHG Vent. Rate : 70 BPM Atrial Rate : 70 BPM P-R Int : 144 ms QRS Dur : 76 ms QT Int : 404 ms P-R-T Axes : 19 31 18 degrees QTcB Int : 436 ms Normal sinus rhythm Cannot rule out Anterior infarct (cited on or before 02-Feb-2023) Abnormal ECG When compared with ECG of 28-Jun-2024 00:03, No significant change was found Referred By: Generic ED Physician Electronically Signed By: LEÓN PAT
[2024-10-05 08:12] VITALS: BP 133/86; PULSE 86; RESP 16; TEMP 36.1; O2SAT 100; BMI 36.8
--- NOTE | 2024-10-05 08:21 | ED.CHESTPAIN ---
HPI - Chest Pain General Chief Complaint: Chest Pain Stated Complaint: Chest pain for days Time Seen by Provider: 10/05/24 08:21 Source: patient, RN notes reviewed and old records reviewed Mode of arrival: ambulatory Limitations: no limitations History of Present Illness ED Provider: Allen HPI narrative: Patient is a 44-year-old female with history of HTN, obesity, migraines, anxiety presenting to the emergency department with complaint of chest pain since last night. States pain began around 10pm, describes as a burning waxing and waning in intensity. Went to [facility] but left from the waiting room due to wait time. Had EKG done there. She went home and slept a few hours, pain has persisted to this morning. PCP looked at EKG done at [facility] last night and advised patient to return to the ED for full evaluation. Associated nausea, denies vomiting or diarrhea. Currently being worked up for MS diagnosis. MD complaint: chest pain Related Data Home Medications ?Medication ?Instructions ?Recorded ?Confirmed lisinopril 10 mg tablet 10 mg PO DAILY 04/23/24 04/23/24 Allergies Allergy/AdvReac Type Severity Reaction Status Date / Time No Known Allergies (No Known Allergy Verified 10/05/24 08:16 Allergies*) Review of Systems Review of Systems: As per HPI Yes all other systems are reviewed and are negative Constitutional: Constitutional: Reports as per HPI [facility] Past Medical History Medical History (Updated 10/05/24 @ 10:46 by Apple Villa NP) Gall bladder disease Migraines HTN (hypertension) Surgical History S/P H/O: hysterectomy History of ankle surgery Social History Social History Alcohol intake: current Alcohol intake frequency: holidays/special occasions only Alcohol type: wine Smoked in Last 30 Days: No Use of substances other than those prescribed or required for medical reasons: No Advance Directives: No Advance Directives Information Provided: No Do you have a plan to hurt others: No Plan Patient : No Physical Exam Vital Signs: Vital Signs: Last Vital Signs Temp 0 F L 10/05/24 10:54 Pulse 67 10/05/24 10:54 Resp 13 10/05/24 10:54 BP 123/81 10/05/24 10:54 Pulse Ox 100 10/05/24 10:54 O2 Del Method Room Air 10/05/24 10:54 BMI result Body Mass Index 36.8 Vital signs have been reviewed and appear to be correct. Blood pressure normal. Heart rate normal. Respiratory rate normal. Temperature normal. Oxygen saturation normal. Const: General: cooperative, healthy appearing and no acute distress Orientation/consciousness: oriented to person, oriented to place, oriented to time and patient oriented x3 Limitations: no limitations HEENT: Head: Yes normocephalic and Yes atraumatic Ears: external ears normal General nose exam: Normal external nose present Face and sinus: Yes face symmetric Mouth: oropharynx normal and moist mucous membranes Throat: Yes uvula midline Eyes: Pupils: Equal, round and reactive pupils present Neck: Neck: Yes normal visual inspection and Yes supple Resp: Effort & Inspection: normal respiratory effort and able to speak in complete sentences Auscultation: clear to auscultation bilaterally Cardio: Rate: regular rate Rhythm: regular rhythm Heart sounds: S1 normal heart sound present and S2 normal heart sound present GI: Palpation (GI): Soft to palpation and nontender Auscultation: normoactive bowel sounds : General: Yes no CVA tenderness Back/Spine/Pelvis: Back: no CVA tenderness Skin: General skin exam: elasticity normal and turgor normal Neuro: General: oriented to person, oriented to place, oriented to time, patient oriented x3, moves all extremities, no focal motor deficits and CN's II-XI intact bilaterally Cranial nerves: Yes Equal, round and reactive pupils present Cognition (Neuro): normal cognition Extrem: General: Yes full ROM, Yes no pedal edema and Yes no calf tenderness Psych: Mental Status: mental status grossly normal Affect: normal affect Thought process: Normal thought process present Medications Administered Discontinued Medications Generic Name Dose Route Start Last Admin Trade Name Freq PRN Reason Stop Dose Admin Al Hydroxide/Mg Hydroxide 15 ml 10/05/24 09:57 10/05/24 10:05 Magnesium Hydrox/Alum Hydrox 30 Ml Oral.Susp PO 10/05/24 09:58 15 ml ONCE ONE Administration Lidocaine HCl 15 ml 10/05/24 09:57 10/05/24 10:05 Lidocaine Hcl Viscous 2 % 15 Ml Solution MUCOUS MEM 10/05/24 09:58 15 ml ONCE ONE Administration Medical Decision Making Medical Decision Making [facility] Narrative: Patient is a 44-year-old female with history of HTN, obesity, migraines, anxiety presenting to the emergency department with complaint of chest pain since last night. On exam patient is awake, A+Ox3, VS WNL, afebrile, normal neurological exam without focal deficits, physical exam findings as above. Given reported symptoms and physical exam findings, initial differential includes but is not limited to GERD, PUD, gastritis, musculoskeletal pain. Unlikely ACS. Do not suspect PE, PERC 0. Labs notable for negative troponin, otherwise unremarkable. Upon review of EMR from [facility] visit last night, troponin there was negative as well. Do not feel additional repeat troponin is indicated. X-ray chest notable for no evidence of pneumonia, pneumothorax. My interpretation is in agreement with the radiologist's interpretation. EKG shows normal sinus rhythm. Patient now stating that she has been under increased stress at work, is unsure how much of her symptoms are related to anxiety. Discussed results with patient and advised follow up with PCP. Return precautions discussed as well. Patient verbalized understanding of and agreement with plan. Differential Diagnosis Differential Diagnoses: The differential diagnosis associated with the presentation includes as per [facility] Admission/Observation Consideration of admission/observation: Escalation of care including admission/observation considered Patient would have been admitted to the hospital had their work up had any findings where hospital admission was appropriate and their clinical presentation warranted hospital admission. Lab Data [facility] Lab Attestation statement: I reviewed the patient's lab results. as per [facility] 10/05/24 09:10 10/05/24 09:10 Labs: Lab Results 10/05/24 Range/Units 09:10 WBC 7.5 (4.8-10.8) X10*3/uL RBC 4.46 (4.20-5.50) X10*6/uL Hgb 13.6 (12.0-16.0) g/dl Hct 39.3 (37.0-47.0) % MCV 88.1 (80.0-98.0) fL MCH 30.5 (27.0-33.0) pg MCHC 34.6 (31.0-35.0) g/dl RDW 12.4 (11.0-16.0) % Plt Count 261 (160-400) X10*3/uL MPV 10.6 (9.4-12.3) fL Immature Gran % (Auto) 0.3 (0.0-0.4) % Neut % (Auto) 73.3 H (45-73) % Lymph % (Auto) 19.3 L (20-40) % [place] % (Auto) 5.2 (2-11) % Eos % (Auto) 1.5 (0-4) % Baso % (Auto) 0.4 (0-2) % Lymph # (Auto) 1.5 (1.2-4.9) X10*3/uL [place] # (Auto) 0.4 (0.1-1.2) X10*3/uL Eos # (Auto) 0.1 (0.0-0.4) X10*3/uL Baso # (Auto) 0.0 (0.0-0.2) X10*3/uL Abs Immat Gran (auto) 0.02 (0.00-0.03) X10*3/uL Absolute Neuts (auto) 5.5 (2.0-8.3) x10*3/uL Absolute Nucleated RBC 0.000 (0.0-0.012) X10*3/uL Nucleated RBC % (auto) 0.0 (0.0-0.2) /100WBC Sodium 138 (135-145) mmol/L Potassium 4.1 (3.3-5.1) mmol/L Chloride 106 (96-108) mmol/L Carbon Dioxide 24 (22-29) mmol/L Anion Gap 12 (12-20) BUN 10 (9-16) mg/dL Creatinine 0.86 (0.5-1.4) mg/dL Estim Creat Clear Calc 105.9 Estimated GFR > 60 Random Glucose 91 (60-115) mg/dL Calcium 9.1 (8.4-10.2) mg/dL Magnesium 2.1 (1.6-2.6) mg/dL Total Bilirubin 0.9 (0.0-1.0) mg/dL AST 48 H (5-31) U/L ALT 51 H (0-31) U/L Alkaline Phosphatase 59 (39-117) U/L Troponin I High Sens < 2.7 (<3.5-17.0) ng/L Total Protein 6.8 (6.5-8.0) g/dL Albumin 4.3 (3.5-5.0) g/dL TSH 1.09 (0.32-4.0) uIU/mL Beta HCG, Quant < 2 mIU/mL Influenza Type A (PCR) NEGATIVE (Negative) Influenza Type B (PCR) NEGATIVE (Negative) RSV RNA Qual (PCR) NEGATIVE (Negative) SARS-CoV-2 RNA (RT-PCR) NEGATIVE (Negative) Independent Interpretation I performed an independent interpretation of an: EKG (Normal sinus rhythm, 70 beats per minute, normal [place] interval and QTC) and Plain X-Ray Interpretation: Chest x-ray is without evidence of pneumothorax, pneumonia. Radiology Impression Discussion of test interpretation with radiology: I have reviewed the radiologist's reading. Radiologist Impression: XR/XR chest 2V IMPRESSION: No acute cardiopulmonary abnormality. External Record Review External record reviewed: Inpatient record, Office record and Outpatient record Discharge Plan Discharge Clinical Impression: Chest pain Patient Disposition: Home, Self-Care Instructions: Chest Pain (DC) Additional Instructions: You were evaluated in the emergency department today for chest pain. Your evaluation has shown no signs of medical conditions requiring emergent intervention at this time, however we recommend that you follow-up with your primary care physician for further testing as an outpatient. Please schedule an appointment for follow-up with your primary care physician as soon as possible. Return to the emergency department if you experience worsening or uncontrolled chest pain, shortness of breath, lightheadedness, feeling faint, loss of consciousness, nausea, vomiting, or any other concerning symptoms. Prescriptions: No Action lisinopril 10 mg tablet 10 mg PO DAILY Interventions: ED Discharge Assessment Last Done: 10/05/24 10:54 Discharge Date/Time: 10/05/24 10:55 Print Language: Armenian
[2024-10-05 08:30] VITALS: BP 116/58; PULSE 71; RESP 13; O2SAT 95
[2024-10-05 09:18] LABS: MANUAL DIFF FLAG NO
[2024-10-05 09:22] LABS: Basophils Percent Auto 0.4 % (0-2); Eosinophils Absolute Auto 0.1 X10*3/uL (0.0-0.4); Eosinophils Percent Auto 1.5 % (0-4); Hematocrit 39.3 % (37.0-47.0); Hemoglobin 13.6 g/dl (12.0-16.0); Imm Gran Abs Auto 0.02 X10*3/uL (0.00-0.03); Imm Gran Pct Auto 0.3 % (0.0-0.4); Lymphocytes Absolute Auto 1.5 X10*3/uL (1.2-4.9); Lymphocytes Percent Auto 19.3 % (20-40); Mean Corpuscular HGB Conc 34.6 g/dl (31.0-35.0); Mean Corpuscular Hemoglobin 30.5 pg (27.0-33.0); Mean Corpuscular Volume 88.1 fL (80.0-98.0); Mean Platelet Volume 10.6 fL (9.4-12.3); Monocytes Absolute Auto 0.4 X10*3/uL (0.1-1.2); Monocytes Percent Auto 5.2 % (2-11); Neutrophils Absolute Auto 5.5 x10*3/uL (2.0-8.3); Neutrophils Percent Auto 73.3 % (45-73); Platelet Count 261 X10*3/uL (160-400); Red Blood Count 4.46 X10*6/uL (4.20-5.50); Red Cell Distribution Width 12.4 % (11.0-16.0); White Blood Count 7.5 X10*3/uL (4.8-10.8)
[2024-10-05 09:36] LABS: Alanine Aminotransferase 51 U/L (0-31); Albumin Level 4.3 g/dL (3.5-5.0); Alkaline Phosphatase 59 U/L (39-117); Anion Gap 12 (12-20); Aspartate Amino Transferase 48 U/L (5-31); Bilirubin Total 0.9 mg/dL (0.0-1.0); Blood Urea Nitrogen 10 mg/dL (9-16); Calcium 9.1 mg/dL (8.4-10.2); Carbon Dioxide 24 mmol/L (22-29); Chloride 106 mmol/L (96-108); Creatinine Clr Calc Pharmacy 105.9; Estimated Glomerular Filt Rate > 60; Glucose Random 91 mg/dL (60-115); Magnesium 2.1 mg/dL (1.6-2.6); Potassium 4.1 mmol/L (3.3-5.1); Sodium 138 mmol/L (135-145); Total Protein 6.8 g/dL (6.5-8.0)
[2024-10-05 09:43] LABS: Troponin-I High Sensitivity < 2.7 ng/L (<3.5-17.0)
[2024-10-05 09:56] LABS: Influenza A PCR NEGATIVE (Negative); Influenza B PCR NEGATIVE (Negative); Resp Syncy Virus RNA Qual PCR NEGATIVE (Negative); SARS COV2 PCR INHOUSE NEGATIVE (Negative)
[2024-10-05 09:58] LABS: HCG Quantitative < 2 mIU/mL; TSH reflex Free T4 1.09 uIU/mL (0.32-4.0)
[2024-10-05] MEDS: Lidocaine HCl Viscous 2 % 15 ML SOLUTION MUCOUS MEM (10:05)
[2024-10-05] MEDS: Magnesium Hydrox/Alum Hydrox 30 ML ORAL.SUSP 15 ML PO (10:05)
[2024-10-05 10:54] VITALS: BP 123/81; PULSE 67; RESP 13; TEMP -17.7; TEMP 0; O2SAT 100
== END 2024-10-05 10:55 | disposition home or self-care (01) ==
PROVIDERS: Registered Nurse Emergency; Emergency Provider Emergency Medicine; PCP Internal Medicine Medical Oncology
DX: R07.9 Chest pain, unspecified (principal); I10 Essential (primary) hypertension; Z03.818 Encounter for observation for suspected exposure to other biological agents ruled out; Z79.899 Other long term (current) drug therapy
CPT/HCPCS: 0241U; 36415; 71046; 80053; 83735; 84443; 84484; 84702; 85025; 93005; 99283; 99285

== ENCOUNTER → 2024-10-05 07:57 | Outpatient (BNV) | payer OTHER, SELFPAY | PROVIDERS: Emergency Provider Emergency Medicine; PCP Internal Medicine Medical Oncology; Visit Provider Internal Medicine | DX: R94.31 Abnormal electrocardiogram [ECG] [EKG] (principal); R07.9 Chest pain, unspecified | CPT/HCPCS: 93010 ==

== ENCOUNTER → 2024-10-25 08:30 | Outpatient (REF) | payer OTHER, SELFPAY ==
--- OUTSIDE RECORDS SUMMARY | 2024-05-01 05:15 | XMS_ITS ---
Author Organization [facility] [address] Address [address] [place] [address] Care Team Providers Care Rn Transitional Name Role Phone Javy Hall Primary Care Provider KAROLINA Schneider [facility] [phone] Encounters Encounter Location Date Provider Diagnosis [facility] [address] [address] 05/01/2024 KAROLINA VANN Plan Of Treatment No Information Progress Notes * NINOChauCharleenOB:1979 (44 yo F)Acc No.[id number]:05/01/2024 Patient: Adela LEACH Provider: Lianet VANN :1980 A ge:44 Y S ex:Female Date:05/01/2024 Address:[address] [place], [place] [id number] Pcp:Javy Hall Subjective: * Chief Complaints: * * Medical History: Objective: * Vitals: Assessment: Plan: * Treatment: * Images: Billing Information: * Visit Code: * Procedure Codes: * Electronic signature of GOLDEN VANN PA-C, [id number] on 10/25/2024 at 08:35 AM EDT Sign off status: Pending * Provider: Lianet VANN Date: 0 05/01/2024 Generated for Enedelia wilkerson/Shy/eTremington on: 0 10/25/2024 08:35 AM EDT
--- OUTSIDE RECORDS SUMMARY | 2024-08-14 05:45 | XMS_ITS ---
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 She has an appointment coming up with neurology at [facility]. Vital Signs Height 67.5 in 08/14/2024 Weight 258 lbs 08/14/2024 BMI 39.81 kg/m2 08/14/2024 Encounters Encounter Location Date Provider Diagnosis Javy Hall III, MD [address] [place] [address] [place] [address] 08/14/2024 Javy Hall Cervical radiculopat hy M54.12 [...] the emergency room March 19, 2024 at [facility] showed severe foraminal narrowing at C5-6 [...] an appointment coming up with neurology at [facility]. 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 She is able to conduct all of the activities daily life. No change in her treatment was necessary today. 08/14/2024 Cervical low risk human papillomavirus (HPV) DNA test positive (ICD-10 - R87.820) She was referred back to [facility] for routine reproductive care. 08/14/2024 Hiatal hernia (ICD-1 0 - K44.9) Her occasional reflux is controlled with axoa-hqx-iwsnsev medications. 08/14/2024 Ureterolithiasis (ICD-10 - N20.1) She [...] referral to the bariatric surgery program at [facility]. We discussed Weight Watchers. We discussed [...] scheduled Provider Name:Javy Hall, 11/28/2024 04:00:00 PM, [address] [place] [address] , [place] [address], [place], [address], Progress Notes * Vicki HARRISONOB:1979 (44 yo F)Acc No.[id number]:08/14/2024 Patient: Adela LEACH Provider: Clive Hall MD :1980 A ge:44 Y S ex:Female Date:08/14/2024 Address:[address] [place] [address] ABIEL LANDIS, [id number] Subjective: * Chief Complaints: * L umbar [...] of provider rendering services: { ...} [address] [facility] [address] L ocation of patient: lesa escobar listed [...] enies. S kin: Itching d enies. R dk d enies. S kin lesion(s)?denies. N eurologic: Difficulty speaking d enies. D izziness d enies.?Headache d enies. L ow back pain d enies. P sychiatric: Depressed mood d enies. * Medical History: * Surgical History: C -section 2012, [id number] right ankle fracture 2008,2010tonsillectomy age 8Partial hysterectomy at of third child [id number] stone removal 08/2019, Lumbar discectomy, Dr. Almanza [...] ggressive non-smoker S he was born in [place]. 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 She lives witth her [...] an appointment coming up with neurology at [facility]. 2 . C ervical radiculopathy - M54.12 N otes :Recent imaging of the head and neck in the emergency room March 19, 2024 at [facility] showed severe foraminal narrowing at C5-6 [...] R87.820? Notes :She was referred back to [facility] for routine reproductive care. 5 . H iatal hernia - K44.9 N otes :Her occasional reflux is controlled with dhbx-gbi-aowocpc medications. 6 . U reterolithiasis - N20.1 [...] referral to the bariatric surgery program at [facility]. We discussed Weight Watchers. We discussed [...] 08/14/2024 Generated for Enedelia wilkerson/Shy/eTransmitting on: 0 10/25/2024 08:35 AM EDT History and Physical Notes * HPI (History of Present Illness) Category Sub-Category Detail Notes Telehealth Location of [facility] rendering services:: {...} [address] [facility] [address] Location of patient:: address listed in demographics [...]
--- NOTE | 2024-10-25 08:34 | CA_ITS ---
Acquisition Time: 2024-10-25 08:50:12 Total Exercise Time: 00:05:39 Test Indications: CP Medications: SEE H&P Protocol: KWAME Max HR: 157 BPM 88% of Pred: 177 BPM Max BP: 142/72 mmHG Max Work Load: 7.0 METS Exercise stress test with exercise 5 mins 39 secs of Kwame Protocol, achieving 87% MPHR, with reports of mild SOB, no chest pain, without any arrythmias, with normotensive response to exercise. Without any EKG changes meeting criteria for ischemia. In recovery, breathing returned to baseline. Test reviewed with Dr. Arroyo. Referred By: Javy Hall Electronically Signed By: Trav Henry
--- OUTSIDE RECORDS SUMMARY | 2024-10-25 08:35 | XMS_ITS | Clinical Summary ---
Author Organization [facility] Address [address] [place] [address] Care Team Providers Care Unit Aide Tech Name Role Phone Unavailable Primary Care Provider Unavailabl e Surgical History Surgery Date Site/Laterality Comments PARTIAL HYSTERECTOMY 02/2017 PROCEDURE: IA SUPRACERVICAL ABDL HYSTER W/WO RMVL TUBE OVARY; [...] drink = 0.6 oz pur e alcohol) Comments Unknown Sex and Gender Information Value Date Recorded Sex Assigned at Not on file Legal Sex Female 3:42 AM EST Gender Identity Not on file Sexual Orientation Not on file Obstetrics History Plan of Treatment Health Maintenance Due Date Last Done Comments Breast Cancer Screening 1981 DTaP,Tdap,and Td Vaccines (1 - Tdap) 2000 Hepatitis B Vaccines (1 of 3 - 19+ 3-dose series) 2000 Cervical Cancer Screening: P ap Smear 2002 COVID-19 Vaccine (2023-2 5 season) 2023 Influenza Vaccine (#1) 2024 HIB Vaccines Aged Out No longer eligi [...] patient's age to complete this topic Meningococcal B Vaccine Aged Out No l onger eligible based on patient's age to complete this topic Pneumococcal Vaccine: Pediat rics (0 to 5 Years) and At-Risk Patients (6 to 49 Years) Aged Out No longer eligible b ased on patient's age to complete this topic RSV Immunization Patients Un rylan 20 months Aged Out No longer eligible b ased on patient's age to complete this topic Varicella Vaccines Aged Out No longer eligible based on patient's age to complete this topic
== END ==
LOC: HO.CARD 08:30
PROVIDERS: PCP Internal Medicine Medical Oncology; Visit Provider Internal Medicine Medical Oncology
DX: R07.9 Chest pain, unspecified (principal)
CPT/HCPCS: 93017

== ENCOUNTER → 2024-10-25 08:34 | Outpatient (BNV) | payer OTHER, SELFPAY | PROVIDERS: PCP Internal Medicine Medical Oncology | DX: R06.02 Shortness of breath (principal) | CPT/HCPCS: 93016; 93018 ==